=== PATIENT | female | born 1995 | race Hispanic/Latino ===

== ENCOUNTER 2021-04-24 02:13 | Emergency (ER) | payer MEDICAID ==
[~2021-04-24] VITALS: Ht 154.9 cm; Wt 93.0 kg
[2021-04-24] MEDS ORDERED: KETOROLAC TROMETHAMINE 30 MG/ML VIAL IV STA (04:09)
[2021-04-24] MEDS ORDERED: KETOROLAC TROMETHAMINE 30 MG/ML VIAL ONE (04:18)
[2021-04-24 04:24] LABS: BASOPHILS # (AUTO) 0.1 (0.0-0.1); BASOPHILS % 0.7 % (0.0-1.0); EOSINOPHILS # (AUTO) 0.1 (0.0-0.4); EOSINOPHILS % 0.4 % (0.0-6.0); HEMATOCRIT 30.9 % (34.2-44.1); HEMOGLOBIN 9.7 g/dL (12.0-16.0); LYMPHOCYTES # (AUTO) 1.8 (1.0-3.2); LYMPHOCYTES % 15.9 % (18.0-39.1); MEAN CORPUSCULAR HEMOGLOBIN 25.1 pg (28-32); MEAN CORPUSCULAR HGB CONC 31.4 g/dL (31-35); MEAN CORPUSCULAR VOLUME 79.8 fL (81-99); MONOCYTES # (AUTO) 0.6 (0.2-0.8); MONOCYTES % 4.8 % (4.4-11.3); NEUTROPHILS # (AUTO) 8.8 (2.1-6.9); NEUTROPHILS % 77.8 % (38.7-80.0); PLATELET COUNT 397 x10e3/uL (140-360); RED BLOOD COUNT 3.87 x10e6/uL (3.6-5.1); RED CELL DISTRIBUTION WIDTH 13.6 % (11.7-14.4)
[2021-04-24 04:26] LABS: CLARITY,URINE CLEAR (CLEAR); COLOR,URINE YELLOW (YELLOW); KETONES,URINE NEGATIVE (NEGATIVE); LEUKOCYTE ESTERASE ,URINE NEGATIVE (NEGATIVE); NITRITE,URINE NEGATIVE (NEGATIVE); PROTEIN,URINE DIPSTICK NEGATIVE (NEGATIVE); URINE UROBILINOGEN 0.2 mg/dL (0.2 - 1)
[2021-04-24 04:31] LABS: AMORPHOUS SEDIMENT,URINE FEW (FEW); BACTERIA,URINE FEW /HPF; EPITHELIAL CELLS,URINE MODERATE /LPF; MUCUS,URINE FEW (RARE); RBC,URINE 0-5 /HPF (0-5); WBC,URINE (MAN) 0-5 /HPF (0-5)
[2021-04-24] MEDS ORDERED: IOPAMIDOL 370 MG/ML 200 ML INFUS..BTL INJ ONE (04:41)
[2021-04-24] MEDS ORDERED: SODIUM CHLORIDE 0.9% 50ML 50 ML ONE (04:41)
[2021-04-24 04:44] LABS: ALANINE AMINOTRANSFERASE 32 IU/L (0-55); ALBUMIN 4.3 g/dL (3.5-5.0); ALBUMIN/GLOBULIN RATIO 1.1 (0.8-2.0); ALKALINE PHOSPHATASE 74 IU/L (40-150); ANION GAP 14.8 mmol/L (8-16); BLOOD UREA NITROGEN 11 mg/dL (7-26); BUN/CREATININE RATIO 14 (6-25); CALCIUM 9.2 mg/dL (8.4-10.2); CARBON DIOXIDE 23 mmol/L (22-29); CHLORIDE 101 mmol/L (98-107); CREATININE, SERUM 0.81 mg/dL (0.57-1.11); EST GLOMERULAR FILTRATION RATE > 60 ML/MIN (60-); GLUCOSE 103 mg/dL (74-118); POTASSIUM 3.8 mmol/L (3.5-5.1); SODIUM 135 mmol/L (136-145)
[2021-04-24 06:40] VITALS: BP 121/65
== END 2021-04-24 06:45 | disposition home or self-care (01) ==
LOC: ER 04:22
DX: K80.50 Calculus of bile duct without cholangitis or cholecystitis without obstruction (principal)
CPT/HCPCS: 36415; 74177; 80053; 81001; 81025; 83690; 85025; 99284; J1885; Q9967

== ENCOUNTER 2021-04-25 04:26 | Inpatient (IN) | payer MEDICAID ==
[~2021-04-25] VITALS: Ht 154.9 cm; Wt 93.0 kg
[2021-04-25] MEDS ORDERED: ONDANSETRON HCL INJ 2MG/ML 2ML 2 MG/ML VIAL IV STA ×2 (04:37→05:39)
[2021-04-25 04:45] LABS: BASOPHILS % 0.2 % (0.0-1.0); HEMATOCRIT 37.9 % (34.2-44.1); HEMOGLOBIN 12.1 g/dL (12.0-16.0); LYMPHOCYTES # (AUTO) 0.9 (1.0-3.2); LYMPHOCYTES % 5.7 % (18.0-39.1); MEAN CORPUSCULAR HEMOGLOBIN 24.8 pg (28-32); MEAN CORPUSCULAR HGB CONC 31.9 g/dL (31-35); MEAN CORPUSCULAR VOLUME 77.8 fL (81-99); MONOCYTES # (AUTO) 0.7 (0.2-0.8); MONOCYTES % 4.7 % (4.4-11.3); NEUTROPHILS # (AUTO) 13.6 (2.1-6.9); NEUTROPHILS % 88.9 % (38.7-80.0); PLATELET COUNT 525 x10e3/uL (140-360); RED BLOOD COUNT 4.87 x10e6/uL (3.6-5.1); RED CELL DISTRIBUTION WIDTH 13.7 % (11.7-14.4)
[2021-04-25] MEDS ORDERED: DICYCLOMINE HCL 20 MG/2 ML VIAL IM ONE (04:45)
[2021-04-25 05:03] LABS: AMYLASE 1060 U/L (25-125)
[2021-04-25 05:09] LABS: ALANINE AMINOTRANSFERASE 432 IU/L (0-55); ALBUMIN 4.4 g/dL (3.5-5.0); ALKALINE PHOSPHATASE 135 IU/L (40-150); ANION GAP 20.7 mmol/L (8-16); BLOOD UREA NITROGEN 12 mg/dL (7-26); BUN/CREATININE RATIO 12 (6-25); CALCIUM 8.8 mg/dL (8.4-10.2); CARBON DIOXIDE 20 mmol/L (22-29); CHLORIDE 98 mmol/L (98-107); CREATININE, SERUM 1.04 mg/dL (0.57-1.11); EST GLOMERULAR FILTRATION RATE > 60 ML/MIN (60-); GLUCOSE 153 mg/dL (74-118); POTASSIUM 3.7 mmol/L (3.5-5.1); SODIUM 135 mmol/L (136-145)
[2021-04-25 05:17] LABS: CLARITY,URINE SL CLOUDY (CLEAR); COLOR,URINE AMBER (YELLOW); KETONES,URINE NEGATIVE (NEGATIVE); LEUKOCYTE ESTERASE ,URINE NEGATIVE (NEGATIVE); NITRITE,URINE NEGATIVE (NEGATIVE); PROTEIN,URINE DIPSTICK 2+ (NEGATIVE); URINE UROBILINOGEN 0.2 mg/dL (0.2 - 1)
[2021-04-25 05:24] LABS: BACTERIA,URINE FEW /HPF; EPITHELIAL CELLS,URINE MODERATE /LPF; MUCUS,URINE MANY (RARE); WBC,URINE (MAN) 0-5 /HPF (0-5)
[2021-04-25 05:25] LABS: AMORPHOUS SEDIMENT,URINE FEW (FEW)
[2021-04-25] MEDS: PIPERACILLIN/TAZOBACTAM 3.375 GM in SODIUM CHLORIDE 0.9% 50ML 50 ML IV SCH ×4 (05:25→23:58)
[2021-04-25] MEDS ORDERED: SODIUM CHLORIDE 0.9% 50ML 50 ML ONE (05:25)
[2021-04-25] MEDS ORDERED: PIPERACILLIN/TAZOBACTAM 3.375 GM VIAL ONE (05:25)
[2021-04-25 05:35] LABS: LIPASE 3576 U/L (8-78)
[2021-04-25] MEDS ORDERED: MORPHINE SULFATE INJ 4 MG/ML INJ 1ML IV STA (05:39)
[2021-04-25] MEDS ORDERED: SODIUM CHLORIDE 0.9% 500ML 500 ML ONE ×2 (05:44→05:53)
[2021-04-25] MEDS ORDERED: SODIUM CHLORIDE 0.9% 1000ML 2,000 ML ONE (05:44)
[2021-04-25] MEDS ORDERED: SODIUM CHLORIDE 0.9% 1000ML 1,000 ML IV ONE ×3 (05:45)
[2021-04-25] MEDS ORDERED: MORPHINE SULFATE INJ 2 MG/ML SYR ONE (05:53)
[2021-04-25] MEDS ORDERED: ONDANSETRON HCL INJ 2MG/ML 2ML 2 MG/ML VIAL ONE (05:53)
[2021-04-25] MEDS ORDERED: HYDROMORPHONE 1MG/1ML INJ IV ONE (06:45)
[2021-04-25] MEDS: HYDROMORPHONE 1MG/1ML INJ IV PRN ×4 (07:52→23:04)
[2021-04-25] MEDS: ONDANSETRON HCL INJ 2MG/ML 2ML 2 MG/ML VIAL IV PRN (07:52)
[2021-04-25 09:20] VITALS: BP 127/97
[2021-04-25] MEDS: SODIUM CHLORIDE 0.9% 1000ML 1,000 ML IV SCH ×3 (09:40→23:15)
[2021-04-25 10:05] VITALS: BP 127/97
[2021-04-25] MEDS ORDERED: PIPERACILLIN/TAZOBACTAM 3.375 GM in SODIUM CHLORIDE 0.9% 50ML 50 ML IV SCH (12:00)
[2021-04-25 12:34] VITALS: BP 134/99
[2021-04-25 16:35] VITALS: BP 123/86
[2021-04-25 20:00] VITALS: BP 124/99
[2021-04-25 21:00] VITALS: BP 124/99
[2021-04-26] VITALS (8 sets, daily range): BP systolic 100–133; BP diastolic 56–88
[2021-04-26] MEDS: HYDROMORPHONE 1MG/1ML INJ IV PRN ×7 (02:16→22:35)
[2021-04-26] MEDS: LACTATED RINGER'S 1,000 ML INJ SCH ×5 (02:59→23:34)
[2021-04-26 05:48] LABS: BASOPHILS # (AUTO) 0.1 (0.0-0.1); BASOPHILS % 0.5 % (0.0-1.0); EOSINOPHILS % 0.1 % (0.0-6.0); HEMATOCRIT 31.7 % (34.2-44.1); HEMOGLOBIN 9.8 g/dL (12.0-16.0); LYMPHOCYTES # (AUTO) 0.9 (1.0-3.2); LYMPHOCYTES % 8.5 % (18.0-39.1); MEAN CORPUSCULAR HEMOGLOBIN 24.7 pg (28-32); MEAN CORPUSCULAR HGB CONC 30.9 g/dL (31-35); MEAN CORPUSCULAR VOLUME 79.8 fL (81-99); MONOCYTES # (AUTO) 0.5 (0.2-0.8); MONOCYTES % 5.1 % (4.4-11.3); NEUTROPHILS # (AUTO) 8.9 (2.1-6.9); NEUTROPHILS % 85.4 % (38.7-80.0); PLATELET COUNT 405 x10e3/uL (140-360); RED BLOOD COUNT 3.97 x10e6/uL (3.6-5.1); RED CELL DISTRIBUTION WIDTH 14.1 % (11.7-14.4)
[2021-04-26] MEDS: PIPERACILLIN/TAZOBACTAM 3.375 GM in SODIUM CHLORIDE 0.9% 50ML 50 ML IV SCH ×4 (06:04→23:34)
[2021-04-26 06:13] LABS: ALANINE AMINOTRANSFERASE 199 IU/L (0-55); ALBUMIN/GLOBULIN RATIO 0.9 (0.8-2.0); ALKALINE PHOSPHATASE 90 IU/L (40-150); AMYLASE 722 U/L (25-125); ANION GAP 10.4 mmol/L (8-16); BLOOD UREA NITROGEN 5 mg/dL (7-26); BUN/CREATININE RATIO 7 (6-25); CARBON DIOXIDE 24 mmol/L (22-29); CHLORIDE 105 mmol/L (98-107); CREATININE, SERUM 0.68 mg/dL (0.57-1.11); EST GLOMERULAR FILTRATION RATE > 60 ML/MIN (60-); GLUCOSE 110 mg/dL (74-118); POTASSIUM 3.4 mmol/L (3.5-5.1); SODIUM 136 mmol/L (136-145)
[2021-04-26 06:21] LABS: CALCIUM 6.4 mg/dL (8.4-10.2)
[2021-04-26] MEDS ORDERED: CALCIUM GLUCONATE 10% INJ 9.3 MEQ in SODIUM CHLORIDE 0.9% 100 ML 100 ML IV ONE ×2 (06:45→10:30)
[2021-04-26 06:50] LABS: % IRON SATURATION 3 % (15-50); IRON 9 ug/dL (50-170); TOTAL IRON BINDING CAPACITY 335 ug/dL (261-478); TRANSFERRIN 239 mg/dL (180-382)
[2021-04-26 07:03] LABS: LIPASE 1833 U/L (8-78)
[2021-04-26 07:11] LABS: FREE THYROXINE INDEX 0.2421483 (1.4-3.8); THYROID STIMULATING HORMONE 17.067 uIU/mL (0.350-4.940)
[2021-04-26] MEDS ORDERED: POTASSIUM CHLORIDE 20 MEQ TAB CR PO NR (10:15)
[2021-04-26] MEDS: IRON SUCROSE 100 MG in SODIUM CHLORIDE 0.9% 100 ML 100 ML IV SCH (13:31)
[2021-04-27] VITALS (8 sets, daily range): BP systolic 104–129; BP diastolic 53–81
[2021-04-27] MEDS: HYDROMORPHONE 1MG/1ML INJ IV PRN ×8 (01:33→23:09)
[2021-04-27] MEDS: LACTATED RINGER'S 1,000 ML INJ SCH ×5 (03:19→20:19)
[2021-04-27 05:05] LABS: BASOPHILS % 0.4 % (0.0-1.0); EOSINOPHILS # (AUTO) 0.1 (0.0-0.4); EOSINOPHILS % 0.9 % (0.0-6.0); HEMATOCRIT 26.9 % (34.2-44.1); HEMOGLOBIN 8.3 g/dL (12.0-16.0); LYMPHOCYTES % 9.5 % (18.0-39.1); MEAN CORPUSCULAR HEMOGLOBIN 24.7 pg (28-32); MEAN CORPUSCULAR HGB CONC 30.9 g/dL (31-35); MEAN CORPUSCULAR VOLUME 80.1 fL (81-99); MONOCYTES # (AUTO) 0.6 (0.2-0.8); MONOCYTES % 5.6 % (4.4-11.3); NEUTROPHILS % 82.8 % (38.7-80.0); PLATELET COUNT 344 x10e3/uL (140-360); RED BLOOD COUNT 3.36 x10e6/uL (3.6-5.1); RED CELL DISTRIBUTION WIDTH 14.3 % (11.7-14.4)
[2021-04-27 05:58] LABS: ALANINE AMINOTRANSFERASE 129 IU/L (0-55); ALBUMIN 2.7 g/dL (3.5-5.0); ALBUMIN/GLOBULIN RATIO 0.8 (0.8-2.0); ALKALINE PHOSPHATASE 95 IU/L (40-150); AMYLASE 464 U/L (25-125); ANION GAP 13.7 mmol/L (8-16); CARBON DIOXIDE 24 mmol/L (22-29); CHLORIDE 99 mmol/L (98-107); CREATININE, SERUM 0.62 mg/dL (0.57-1.11); EST GLOMERULAR FILTRATION RATE > 60 ML/MIN (60-); GLUCOSE 98 mg/dL (74-118); LIPASE 735 U/L (8-78); POTASSIUM 3.7 mmol/L (3.5-5.1); SODIUM 133 mmol/L (136-145)
[2021-04-27 05:59] LABS: BUN/CREATININE RATIO 8 (6-25)
[2021-04-27 06:00] LABS: CALCIUM 6.7 mg/dL (8.4-10.2)
[2021-04-27 06:12] LABS: BLOOD UREA NITROGEN < 5 mg/dL (7-26)
[2021-04-27] MEDS: PIPERACILLIN/TAZOBACTAM 3.375 GM in SODIUM CHLORIDE 0.9% 50ML 50 ML IV SCH ×4 (06:20→23:08)
[2021-04-27 06:25] LABS: LYMPHOCYTES % (MANUAL) 11 % (19-48); MONOCYTES % (MANUAL) 4 % (3.4-9.0); NEUTROPHILS % (MANUAL) 85 % (40-74); PLATELET ESTIMATE ADEQUATE; PLATELET MORPHOLOGY COMMENT NORMAL; RBC MORPHOLOGY COMMENT NORMAL
[2021-04-27] MEDS ORDERED: CALCIUM GLUCONATE 10% INJ 9.3 MEQ in SODIUM CHLORIDE 0.9% 250ML 250 ML IV SCH (06:45)
[2021-04-27 07:56] LABS: MAGNESIUM 1.7 MG/DL (1.3-2.1); PHOSPHORUS 0.8 MG/DL (2.3-4.7)
[2021-04-27] MEDS ORDERED: SODIUM PHOSPHATE IN 0.9 % NACL 30 MMOL in SODIUM CHLORIDE 0.9% 250ML 250 ML IV ONE ×2 (09:45)
[2021-04-27] MEDS ORDERED: MAGNESIUM SULF 1GRAM/DEXTROSE 100 ML IV ONE (09:45)
[2021-04-27] MEDS: IRON SUCROSE 100 MG in SODIUM CHLORIDE 0.9% 100 ML 100 ML IV SCH (10:45)
[2021-04-27] MEDS: CALCIUM GLUCONATE 10% INJ 9.3 MEQ in SODIUM CHLORIDE 0.9% 250ML 250 ML IV SCH ×3 (14:30→21:26)
[2021-04-27] MEDS ORDERED: CALCITRIOL 0.5 MCG CAP PO SCH (17:30)
[2021-04-27] MEDS: CALCITRIOL 0.25 MCG CAP PO SCH (17:47)
[2021-04-27] MEDS: LEVOTHYROXINE SODIUM 75 MCG TAB PO SCH (17:47)
[2021-04-27 19:02] LABS: FREE T4 (FREE THYROXINE) < 0.40 ng/dL (0.8-1.8); THYROID STIMULATING HORMONE 17.007 uIU/mL (0.350-4.940)
[2021-04-27] MEDS ORDERED: FUROSEMIDE INJ 10 MG/ML 4 ML VIAL IV ONE (22:00)
[2021-04-28] VITALS (8 sets, daily range): BP systolic 107–123; BP diastolic 58–86
[2021-04-28] MEDS: CALCIUM GLUCONATE 10% INJ 9.3 MEQ in SODIUM CHLORIDE 0.9% 250ML 250 ML IV SCH ×6 (02:05→18:10)
[2021-04-28] MEDS: HYDROMORPHONE 1MG/1ML INJ IV PRN ×7 (02:07→23:15)
[2021-04-28] MEDS ORDERED: FUROSEMIDE INJ 10 MG/ML 4 ML VIAL IV ONE (04:00)
[2021-04-28 05:59] LABS: ALBUMIN 2.6 g/dL (3.5-5.0); BILIRUBIN,DIRECT 0.4 mg/dL (0.0-0.5)
[2021-04-28] MEDS: PIPERACILLIN/TAZOBACTAM 3.375 GM in SODIUM CHLORIDE 0.9% 50ML 50 ML IV SCH ×4 (06:00→23:28)
[2021-04-28] MEDS: LEVOTHYROXINE SODIUM 75 MCG TAB PO SCH (06:00)
[2021-04-28] MEDS ORDERED: ACETAMINOPHEN 325 MG TAB PO PRN (06:30)
[2021-04-28] MEDS: CALCITRIOL 0.25 MCG CAP PO SCH (08:01)
[2021-04-28] MEDS: IRON SUCROSE 100 MG in SODIUM CHLORIDE 0.9% 100 ML 100 ML IV SCH (11:01)
[2021-04-28] MEDS: LACTATED RINGER'S 1,000 ML INJ SCH ×2 (11:01→20:48)
[2021-04-28] MEDS ORDERED: SODIUM CHLORIDE 0.9% 50ML 50 ML ONE (13:32)
[2021-04-28] MEDS ORDERED: GADOBENATE DIMEGLUMINE 1 ML IV ONE (13:32)
[2021-04-28] MEDS ORDERED: SODIUM CHLORIDE 0.9% 250ML 250 ML ONE (16:41)
[2021-04-29] VITALS (8 sets, daily range): BP systolic 116–128; BP diastolic 69–77
[2021-04-29] MEDS: CALCIUM GLUCONATE 10% INJ 9.3 MEQ in SODIUM CHLORIDE 0.9% 250ML 250 ML IV SCH ×4 (00:20→18:10)
[2021-04-29] MEDS: HYDROMORPHONE 1MG/1ML INJ IV PRN ×7 (02:30→22:40)
[2021-04-29 05:10] LABS: BASOPHILS # (AUTO) 0.1 (0.0-0.1); BASOPHILS % 0.7 % (0.0-1.0); EOSINOPHILS # (AUTO) 0.1 (0.0-0.4); HEMATOCRIT 23.9 % (34.2-44.1); HEMOGLOBIN 7.6 g/dL (12.0-16.0); LYMPHOCYTES % 9.8 % (18.0-39.1); MEAN CORPUSCULAR HEMOGLOBIN 25.2 pg (28-32); MEAN CORPUSCULAR HGB CONC 31.8 g/dL (31-35); MEAN CORPUSCULAR VOLUME 79.1 fL (81-99); MONOCYTES # (AUTO) 0.9 (0.2-0.8); MONOCYTES % 8.5 % (4.4-11.3); NEUTROPHILS # (AUTO) 7.9 (2.1-6.9); NEUTROPHILS % 78.4 % (38.7-80.0); PLATELET COUNT 355 x10e3/uL (140-360); RED BLOOD COUNT 3.02 x10e6/uL (3.6-5.1); RED CELL DISTRIBUTION WIDTH 14.6 % (11.7-14.4)
[2021-04-29] MEDS: PIPERACILLIN/TAZOBACTAM 3.375 GM in SODIUM CHLORIDE 0.9% 50ML 50 ML IV SCH ×3 (05:27→18:10)
[2021-04-29] MEDS: LEVOTHYROXINE SODIUM 75 MCG TAB PO SCH (05:27)
[2021-04-29 06:05] LABS: ALANINE AMINOTRANSFERASE 67 IU/L (0-55); ALBUMIN 2.4 g/dL (3.5-5.0); ALBUMIN/GLOBULIN RATIO 0.7 (0.8-2.0); ALKALINE PHOSPHATASE 106 IU/L (40-150); ANION GAP 14.9 mmol/L (8-16); BUN/CREATININE RATIO 9 (6-25); CALCIUM 7.8 mg/dL (8.4-10.2); CARBON DIOXIDE 26 mmol/L (22-29); CHLORIDE 99 mmol/L (98-107); CREATININE, SERUM 0.57 mg/dL (0.57-1.11); EST GLOMERULAR FILTRATION RATE > 60 ML/MIN (60-); GLUCOSE 77 mg/dL (74-118); MAGNESIUM 1.9 MG/DL (1.3-2.1); PHOSPHORUS 1.1 MG/DL (2.3-4.7); SODIUM 137 mmol/L (136-145)
[2021-04-29 06:08] LABS: POTASSIUM 2.9 mmol/L (3.5-5.1)
[2021-04-29 06:18] LABS: BLOOD UREA NITROGEN < 5 mg/dL (7-26)
[2021-04-29] MEDS ORDERED: POTASSIUM CHLORIDE 20MEQ/100ML 100 ML IV ONE ×2 (06:45→11:30)
[2021-04-29] MEDS: CALCITRIOL 0.25 MCG CAP PO SCH (09:15)
[2021-04-29] MEDS: IRON SUCROSE 100 MG in SODIUM CHLORIDE 0.9% 100 ML 100 ML IV SCH (10:48)
[2021-04-29] MEDS ORDERED: POTASSIUM PHOSPHATE 30 MM in SODIUM CHLORIDE 0.9% 250ML 250 ML IV ONE (14:00)
[2021-04-29] MEDS: LACTATED RINGER'S 1,000 ML INJ SCH (21:45)
[2021-04-30] VITALS (7 sets, daily range): BP systolic 104–143; BP diastolic 51–81
[2021-04-30] MEDS: PIPERACILLIN/TAZOBACTAM 3.375 GM in SODIUM CHLORIDE 0.9% 50ML 50 ML IV SCH ×5 (00:10→23:53)
[2021-04-30] MEDS: CALCIUM GLUCONATE 10% INJ 9.3 MEQ in SODIUM CHLORIDE 0.9% 250ML 250 ML IV SCH ×5 (00:10→23:44)
[2021-04-30] MEDS: LACTATED RINGER'S 1,000 ML INJ SCH ×2 (01:13→18:47)
[2021-04-30] MEDS: HYDROMORPHONE 1MG/1ML INJ IV PRN ×7 (03:00→23:41)
[2021-04-30] MEDS ORDERED: BISACODYL 10 MG SUPP PR ONE (03:00)
[2021-04-30] MEDS: LEVOTHYROXINE SODIUM 75 MCG TAB PO SCH (06:13)
[2021-04-30 06:46] LABS: BASOPHILS % 0.3 % (0.0-1.0); EOSINOPHILS # (AUTO) 0.1 (0.0-0.4); EOSINOPHILS % 0.9 % (0.0-6.0); HEMATOCRIT 22.3 % (34.2-44.1); HEMOGLOBIN 7.2 g/dL (12.0-16.0); LYMPHOCYTES # (AUTO) 1.2 (1.0-3.2); LYMPHOCYTES % 11.5 % (18.0-39.1); MEAN CORPUSCULAR HEMOGLOBIN 25.1 pg (28-32); MEAN CORPUSCULAR HGB CONC 32.3 g/dL (31-35); MEAN CORPUSCULAR VOLUME 77.7 fL (81-99); MONOCYTES % 9.1 % (4.4-11.3); NEUTROPHILS % 75.8 % (38.7-80.0); PLATELET COUNT 429 x10e3/uL (140-360); RED BLOOD COUNT 2.87 x10e6/uL (3.6-5.1); RETICULOCYTE % 2.8 % (0.8-2.2)
[2021-04-30 07:25] LABS: ANION GAP 12.8 mmol/L (8-16); BLOOD UREA NITROGEN < 5 mg/dL (7-26); CALCIUM 7.9 mg/dL (8.4-10.2); CARBON DIOXIDE 25 mmol/L (22-29); CHLORIDE 101 mmol/L (98-107); CREATININE, SERUM 0.53 mg/dL (0.57-1.11); EST GLOMERULAR FILTRATION RATE > 60 ML/MIN (60-); GLUCOSE 83 mg/dL (74-118); SODIUM 136 mmol/L (136-145)
[2021-04-30 07:28] LABS: BUN/CREATININE RATIO 9 (6-25)
[2021-04-30 07:29] LABS: POTASSIUM 2.8 mmol/L (3.5-5.1)
[2021-04-30 07:52] LABS: AMYLASE 52 U/L (25-125); LIPASE 43 U/L (8-78)
[2021-04-30] MEDS ORDERED: POTASSIUM CHLORIDE 20MEQ/100ML 200 ML IV ONE (08:45)
[2021-04-30 08:47] LABS: BAND NEUTROPHILS % (MANUAL) 3 %; EOSINOPHILS % (MANUAL) 1 % (0-7); LYMPHOCYTES % (MANUAL) 11 % (19-48); MONOCYTES % (MANUAL) 8 % (3.4-9.0); NEUTROPHILS % (MANUAL) 77 % (40-74); NUCLEATED RED BLOOD CELLS 1
[2021-04-30 08:49] LABS: PLATELET ESTIMATE SLIGHTLY INCREASED; PLATELET MORPHOLOGY COMMENT NORMAL; RBC MORPHOLOGY COMMENT NORMAL
[2021-04-30] MEDS: CALCITRIOL 0.25 MCG CAP PO SCH (09:44)
[2021-04-30] MEDS ORDERED: POTASSIUM PHOSPHATE 30 MM in SODIUM CHLORIDE 0.9% 250ML 250 ML IV ONE (12:00)
[2021-04-30] MEDS: IRON SUCROSE 100 MG in SODIUM CHLORIDE 0.9% 100 ML 100 ML IV SCH (13:13)
[2021-05-01] VITALS (7 sets, daily range): BP systolic 106–132; BP diastolic 63–85
[2021-05-01] MEDS: CALCIUM GLUCONATE 10% INJ 9.3 MEQ in SODIUM CHLORIDE 0.9% 250ML 250 ML IV SCH ×4 (02:39→18:09)
[2021-05-01] MEDS: HYDROMORPHONE 1MG/1ML INJ IV PRN ×6 (02:44→21:20)
[2021-05-01 04:55] LABS: BASOPHILS # (AUTO) 0.1 (0.0-0.1); BASOPHILS % 0.6 % (0.0-1.0); EOSINOPHILS # (AUTO) 0.1 (0.0-0.4); EOSINOPHILS % 0.9 % (0.0-6.0); HEMATOCRIT 21.8 % (34.2-44.1); HEMOGLOBIN 7.2 g/dL (12.0-16.0); LYMPHOCYTES # (AUTO) 1.3 (1.0-3.2); LYMPHOCYTES % 10.9 % (18.0-39.1); MEAN CORPUSCULAR HEMOGLOBIN 25.3 pg (28-32); MEAN CORPUSCULAR VOLUME 76.5 fL (81-99); MONOCYTES # (AUTO) 0.9 (0.2-0.8); MONOCYTES % 7.4 % (4.4-11.3); NEUTROPHILS # (AUTO) 8.8 (2.1-6.9); NEUTROPHILS % 75.6 % (38.7-80.0); PLATELET COUNT 446 x10e3/uL (140-360); RED BLOOD COUNT 2.85 x10e6/uL (3.6-5.1); RED CELL DISTRIBUTION WIDTH 15.6 % (11.7-14.4)
[2021-05-01 05:12] LABS: ANION GAP 16.1 mmol/L (8-16); CALCIUM 7.7 mg/dL (8.4-10.2); CARBON DIOXIDE 25 mmol/L (22-29); CHLORIDE 100 mmol/L (98-107); CREATININE, SERUM 0.51 mg/dL (0.57-1.11); EST GLOMERULAR FILTRATION RATE > 60 ML/MIN (60-); GLUCOSE 97 mg/dL (74-118); POTASSIUM 3.1 mmol/L (3.5-5.1); SODIUM 138 mmol/L (136-145)
[2021-05-01 05:56] LABS: BLOOD UREA NITROGEN < 5 mg/dL (7-26); BUN/CREATININE RATIO 10 (6-25)
[2021-05-01 06:18] LABS: ANISOCYTOSIS SLIGHT; BAND NEUTROPHILS % (MANUAL) 5 %; EOSINOPHILS % (MANUAL) 2 % (0-7); LYMPHOCYTES % (MANUAL) 9 % (19-48); MONOCYTES % (MANUAL) 6 % (3.4-9.0); NEUTROPHILS % (MANUAL) 78 % (40-74); PLATELET ESTIMATE SLIGHTLY INCREASED; PLATELET MORPHOLOGY COMMENT NORMAL
[2021-05-01 06:19] LABS: POIKILOCYTOSIS SLIGHT
[2021-05-01 06:20] LABS: RBC MORPHOLOGY COMMENT ABNORMAL
[2021-05-01] MEDS: LACTATED RINGER'S 1,000 ML INJ SCH ×2 (06:38→17:13)
[2021-05-01] MEDS: LEVOTHYROXINE SODIUM 75 MCG TAB PO SCH (06:38)
[2021-05-01] MEDS: PIPERACILLIN/TAZOBACTAM 3.375 GM in SODIUM CHLORIDE 0.9% 50ML 50 ML IV SCH ×3 (06:38→18:09)
[2021-05-01] MEDS: CALCITRIOL 0.25 MCG CAP PO SCH ×2 (09:00→14:25)
[2021-05-01] MEDS: IRON SUCROSE 100 MG in SODIUM CHLORIDE 0.9% 100 ML 100 ML IV SCH (10:28)
[2021-05-01] MEDS ORDERED: POTASSIUM CHLORIDE 20MEQ/100ML 100 ML IV ONE (19:30)
[2021-05-01] MEDS: ONDANSETRON HCL INJ 2MG/ML 2ML 2 MG/ML VIAL IV PRN (21:22)
[2021-05-02] VITALS (9 sets, daily range): BP systolic 112–126; BP diastolic 62–83
[2021-05-02] MEDS: HYDROMORPHONE 1MG/1ML INJ IV PRN ×8 (00:22→23:27)
[2021-05-02] MEDS: LACTATED RINGER'S 1,000 ML INJ SCH ×2 (05:31→20:49)
[2021-05-02] MEDS: CALCIUM GLUCONATE 10% INJ 9.3 MEQ in SODIUM CHLORIDE 0.9% 250ML 250 ML IV SCH ×5 (05:31→18:00)
[2021-05-02] MEDS: LEVOTHYROXINE SODIUM 75 MCG TAB PO SCH (05:31)
[2021-05-02] MEDS: PIPERACILLIN/TAZOBACTAM 3.375 GM in SODIUM CHLORIDE 0.9% 50ML 50 ML IV SCH ×5 (05:31→18:33)
[2021-05-02 07:19] LABS: BASOPHILS % 0.3 % (0.0-1.0); EOSINOPHILS # (AUTO) 0.1 (0.0-0.4); EOSINOPHILS % 0.9 % (0.0-6.0); LYMPHOCYTES # (AUTO) 1.2 (1.0-3.2); LYMPHOCYTES % 9.4 % (18.0-39.1); MEAN CORPUSCULAR HEMOGLOBIN 24.6 pg (28-32); MEAN CORPUSCULAR HGB CONC 31.7 g/dL (31-35); MEAN CORPUSCULAR VOLUME 77.5 fL (81-99); MONOCYTES # (AUTO) 0.7 (0.2-0.8); MONOCYTES % 5.8 % (4.4-11.3); NEUTROPHILS # (AUTO) 9.9 (2.1-6.9); NEUTROPHILS % 78.8 % (38.7-80.0); PLATELET COUNT 450 x10e3/uL (140-360); RED CELL DISTRIBUTION WIDTH 15.9 % (11.7-14.4)
[2021-05-02 07:30] LABS: HEMATOCRIT 22.1 % (34.2-44.1); RED BLOOD COUNT 2.85 x10e6/uL (3.6-5.1)
[2021-05-02 08:01] LABS: ANION GAP 14.9 mmol/L (8-16); CALCIUM 7.9 mg/dL (8.4-10.2); CARBON DIOXIDE 30 mmol/L (22-29); CHLORIDE 97 mmol/L (98-107); CREATININE, SERUM 0.56 mg/dL (0.57-1.11); EST GLOMERULAR FILTRATION RATE > 60 ML/MIN (60-); GLUCOSE 95 mg/dL (74-118); SODIUM 139 mmol/L (136-145)
[2021-05-02 08:08] LABS: BUN/CREATININE RATIO 4 (6-25)
[2021-05-02 08:11] LABS: BLOOD UREA NITROGEN < 2 mg/dL (7-26); POTASSIUM 2.9 mmol/L (3.5-5.1)
[2021-05-02 08:15] LABS: HEMATOCRIT 22.2 % (34.2-44.1); HEMOGLOBIN 7.2 g/dL (12.0-16.0)
[2021-05-02] MEDS: CALCITRIOL 0.25 MCG CAP PO SCH (08:59)
[2021-05-02] MEDS: POTASSIUM CHLORIDE 20MEQ/100ML 100 ML IV SCH ×3 (08:59→12:37)
[2021-05-02] MEDS: IRON SUCROSE 100 MG in SODIUM CHLORIDE 0.9% 100 ML 100 ML IV SCH (12:35)
[2021-05-02] MEDS: OYST-CAL-D 500MG TABLET PO SCH ×2 (16:49→20:45)
[2021-05-03] VITALS (8 sets, daily range): BP systolic 102–112; BP diastolic 63–75
[2021-05-03] MEDS: PIPERACILLIN/TAZOBACTAM 3.375 GM in SODIUM CHLORIDE 0.9% 50ML 50 ML IV SCH ×5 (00:22→23:28)
[2021-05-03] MEDS: CALCIUM GLUCONATE 10% INJ 9.3 MEQ in SODIUM CHLORIDE 0.9% 250ML 250 ML IV SCH ×4 (02:19→16:15)
[2021-05-03] MEDS: HYDROMORPHONE 1MG/1ML INJ IV PRN ×6 (03:03→22:46)
[2021-05-03] MEDS: LEVOTHYROXINE SODIUM 75 MCG TAB PO SCH (05:31)
[2021-05-03 06:24] LABS: BASOPHILS % 0.4 % (0.0-1.0); EOSINOPHILS # (AUTO) 0.1 (0.0-0.4); EOSINOPHILS % 0.8 % (0.0-6.0); LYMPHOCYTES # (AUTO) 1.3 (1.0-3.2); LYMPHOCYTES % 11.8 % (18.0-39.1); MEAN CORPUSCULAR HEMOGLOBIN 24.9 pg (28-32); MEAN CORPUSCULAR HGB CONC 31.9 g/dL (31-35); MONOCYTES # (AUTO) 0.7 (0.2-0.8); MONOCYTES % 6.3 % (4.4-11.3); NEUTROPHILS # (AUTO) 8.1 (2.1-6.9); NEUTROPHILS % 75.7 % (38.7-80.0); PLATELET COUNT 421 x10e3/uL (140-360); RED BLOOD COUNT 2.73 x10e6/uL (3.6-5.1); RED CELL DISTRIBUTION WIDTH 16.4 % (11.7-14.4)
[2021-05-03 06:44] LABS: HEMATOCRIT 21.3 % (34.2-44.1); HEMOGLOBIN 6.8 g/dL (12.0-16.0)
[2021-05-03] MEDS ORDERED: SODIUM CHLORIDE 0.9% 250ML 250 ML IV ONE (07:15)
[2021-05-03 07:16] LABS: ANION GAP 14.3 mmol/L (8-16); BLOOD UREA NITROGEN < 5 mg/dL (7-26); CARBON DIOXIDE 31 mmol/L (22-29); CHLORIDE 99 mmol/L (98-107); CREATININE, SERUM 0.65 mg/dL (0.57-1.11); EST GLOMERULAR FILTRATION RATE > 60 ML/MIN (60-); GLUCOSE 94 mg/dL (74-118); MAGNESIUM 1.8 MG/DL (1.3-2.1); POTASSIUM 3.3 mmol/L (3.5-5.1); SODIUM 141 mmol/L (136-145)
[2021-05-03 07:24] LABS: BUN/CREATININE RATIO 8 (6-25)
[2021-05-03 07:38] LABS: AMYLASE 59 U/L (25-125); LIPASE 153 U/L (8-78)
[2021-05-03] MEDS: OYST-CAL-D 500MG TABLET PO SCH ×4 (09:27→21:10)
[2021-05-03] MEDS: CALCITRIOL 0.25 MCG CAP PO SCH (09:27)
[2021-05-03] MEDS: LACTATED RINGER'S 1,000 ML INJ SCH ×2 (09:35→22:47)
[2021-05-03] MEDS: ONDANSETRON HCL INJ 2MG/ML 2ML 2 MG/ML VIAL IV PRN ×2 (09:35→22:46)
[2021-05-03] MEDS: IRON SUCROSE 100 MG in SODIUM CHLORIDE 0.9% 100 ML 100 ML IV SCH (10:45)
[2021-05-03] MEDS ORDERED: SODIUM CHLORIDE 0.9% 250ML 250 ML ONE (13:15)
[2021-05-03] MEDS ORDERED: POTASSIUM CHLORIDE 20 MEQ TAB CR PO ONE (13:30)
[2021-05-03] MEDS ORDERED: SODIUM CHLORIDE 0.9% 50ML 100 ML ONE (15:41)
[2021-05-03] MEDS ORDERED: PIPERACILLIN/TAZOBACTAM 3.375 GM VIAL ONE (15:42)
[2021-05-04] VITALS (8 sets, daily range): BP systolic 95–125; BP diastolic 61–76
[2021-05-04] MEDS: CALCIUM GLUCONATE 10% INJ 9.3 MEQ in SODIUM CHLORIDE 0.9% 250ML 250 ML IV SCH ×3 (01:23→22:47)
[2021-05-04] MEDS: HYDROMORPHONE 1MG/1ML INJ IV PRN ×4 (04:16→23:10)
[2021-05-04] MEDS: ONDANSETRON HCL INJ 2MG/ML 2ML 2 MG/ML VIAL IV PRN (04:16)
[2021-05-04] MEDS: PIPERACILLIN/TAZOBACTAM 3.375 GM in SODIUM CHLORIDE 0.9% 50ML 50 ML IV SCH ×3 (05:37→18:00)
[2021-05-04] MEDS: LEVOTHYROXINE SODIUM 75 MCG TAB PO SCH (05:37)
[2021-05-04 08:12] LABS: BASOPHILS % 0.4 % (0.0-1.0); EOSINOPHILS # (AUTO) 0.1 (0.0-0.4); EOSINOPHILS % 0.9 % (0.0-6.0); HEMATOCRIT 26.4 % (34.2-44.1); HEMOGLOBIN 8.4 g/dL (12.0-16.0); LYMPHOCYTES # (AUTO) 1.2 (1.0-3.2); LYMPHOCYTES % 12.9 % (18.0-39.1); MEAN CORPUSCULAR HEMOGLOBIN 25.4 pg (28-32); MEAN CORPUSCULAR HGB CONC 31.8 g/dL (31-35); MEAN CORPUSCULAR VOLUME 79.8 fL (81-99); MONOCYTES # (AUTO) 0.6 (0.2-0.8); MONOCYTES % 6.7 % (4.4-11.3); NEUTROPHILS # (AUTO) 6.5 (2.1-6.9); NEUTROPHILS % 72.4 % (38.7-80.0); PLATELET COUNT 364 x10e3/uL (140-360); RED BLOOD COUNT 3.31 x10e6/uL (3.6-5.1); RED CELL DISTRIBUTION WIDTH 17.7 % (11.7-14.4)
[2021-05-04] MEDS ORDERED: ALTEPLASE RECOMBINANT 2 MG/2 ML VIAL IV ONE (09:00)
[2021-05-04] MEDS: OYST-CAL-D 500MG TABLET PO SCH ×4 (09:00→20:07)
[2021-05-04 09:09] LABS: AMYLASE 68 U/L (25-125); ANION GAP 13.6 mmol/L (8-16); BLOOD UREA NITROGEN < 5 mg/dL (7-26); CALCIUM 8.1 mg/dL (8.4-10.2); CARBON DIOXIDE 29 mmol/L (22-29); CHLORIDE 101 mmol/L (98-107); CREATININE, SERUM 0.65 mg/dL (0.57-1.11); EST GLOMERULAR FILTRATION RATE > 60 ML/MIN (60-); GLUCOSE 86 mg/dL (74-118); LIPASE 180 U/L (8-78); MAGNESIUM 1.8 MG/DL (1.3-2.1); PHOSPHORUS 2.6 MG/DL (2.3-4.7); POTASSIUM 3.6 mmol/L (3.5-5.1); SODIUM 140 mmol/L (136-145)
[2021-05-04] MEDS ORDERED: SODIUM CHLORIDE 0.9% 50ML 50 ML ONE (09:09)
[2021-05-04] MEDS ORDERED: IOPAMIDOL 370 MG/ML 200 ML INFUS..BTL INJ ONE (09:09)
[2021-05-04 09:27] LABS: BUN/CREATININE RATIO 8 (6-25)
[2021-05-04] MEDS: CALCITRIOL 0.25 MCG CAP PO SCH (10:23)
[2021-05-04] MEDS: IRON SUCROSE 100 MG in SODIUM CHLORIDE 0.9% 100 ML 100 ML IV SCH (10:45)
[2021-05-04] MEDS: LACTATED RINGER'S 1,000 ML INJ SCH (11:30)
[2021-05-05] VITALS (8 sets, daily range): BP systolic 103–123; BP diastolic 66–79
[2021-05-05] MEDS: LACTATED RINGER'S 1,000 ML INJ SCH ×2 (03:00→20:17)
[2021-05-05] MEDS: HYDROMORPHONE 1MG/1ML INJ IV PRN ×5 (04:18→21:08)
[2021-05-05 05:31] LABS: BASOPHILS # (AUTO) 0.1 (0.0-0.1); BASOPHILS % 0.5 % (0.0-1.0); EOSINOPHILS # (AUTO) 0.1 (0.0-0.4); EOSINOPHILS % 0.9 % (0.0-6.0); HEMATOCRIT 26.3 % (34.2-44.1); HEMOGLOBIN 8.4 g/dL (12.0-16.0); LYMPHOCYTES # (AUTO) 1.1 (1.0-3.2); LYMPHOCYTES % 11.2 % (18.0-39.1); MEAN CORPUSCULAR HEMOGLOBIN 25.5 pg (28-32); MEAN CORPUSCULAR HGB CONC 31.9 g/dL (31-35); MEAN CORPUSCULAR VOLUME 79.9 fL (81-99); MONOCYTES # (AUTO) 0.7 (0.2-0.8); MONOCYTES % 6.9 % (4.4-11.3); NEUTROPHILS # (AUTO) 7.2 (2.1-6.9); PLATELET COUNT 393 x10e3/uL (140-360); RED BLOOD COUNT 3.29 x10e6/uL (3.6-5.1); RED CELL DISTRIBUTION WIDTH 18.4 % (11.7-14.4)
[2021-05-05] MEDS: LEVOTHYROXINE SODIUM 75 MCG TAB PO SCH (06:00)
[2021-05-05 06:07] LABS: ALANINE AMINOTRANSFERASE 26 IU/L (0-55); ALBUMIN 2.5 g/dL (3.5-5.0); ALBUMIN/GLOBULIN RATIO 0.6 (0.8-2.0); ALKALINE PHOSPHATASE 115 IU/L (40-150); AMYLASE 76 U/L (25-125); ANION GAP 13.3 mmol/L (8-16); BLOOD UREA NITROGEN < 5 mg/dL (7-26); CALCIUM 8.4 mg/dL (8.4-10.2); CARBON DIOXIDE 28 mmol/L (22-29); CHLORIDE 103 mmol/L (98-107); EST GLOMERULAR FILTRATION RATE > 60 ML/MIN (60-); GLUCOSE 120 mg/dL (74-118); LIPASE 200 U/L (8-78); POTASSIUM 3.3 mmol/L (3.5-5.1); SODIUM 141 mmol/L (136-145)
[2021-05-05 06:08] LABS: BUN/CREATININE RATIO 7 (6-25)
[2021-05-05] MEDS: OYST-CAL-D 500MG TABLET PO SCH ×2 (09:18→12:46)
[2021-05-05] MEDS: CALCITRIOL 0.25 MCG CAP PO SCH (09:19)
[2021-05-05] MEDS: IRON SUCROSE 100 MG in SODIUM CHLORIDE 0.9% 100 ML 100 ML IV SCH (10:45)
[2021-05-05] MEDS: CALCIUM GLUCONATE 10% INJ 9.3 MEQ in SODIUM CHLORIDE 0.9% 250ML 250 ML IV SCH (12:00)
[2021-05-05] MEDS ORDERED: POTASSIUM CHLORIDE 10MEQ/100ML 100 ML IV ONE (16:15)
[2021-05-05] MEDS: PIPERACILLIN/TAZOBACTAM 3.375 GM in SODIUM CHLORIDE 0.9% 50ML 50 ML IV SCH ×3 (17:26)
[2021-05-05] MEDS: CALCIUM CARBONATE 500 MG CHEWABLE TABS PO SCH ×2 (17:26→20:52)
[2021-05-06] VITALS (9 sets, daily range): BP systolic 99–115; BP diastolic 42–76
[2021-05-06] MEDS: HYDROMORPHONE 1MG/1ML INJ IV PRN ×5 (01:35→22:19)
[2021-05-06] MEDS: PIPERACILLIN/TAZOBACTAM 3.375 GM in SODIUM CHLORIDE 0.9% 50ML 50 ML IV SCH ×3 (02:39→18:18)
[2021-05-06] MEDS: LACTATED RINGER'S 1,000 ML INJ SCH ×2 (03:53→14:23)
[2021-05-06 04:59] LABS: BASOPHILS % 0.4 % (0.0-1.0); EOSINOPHILS # (AUTO) 0.1 (0.0-0.4); EOSINOPHILS % 1.3 % (0.0-6.0); HEMATOCRIT 26.5 % (34.2-44.1); HEMOGLOBIN 8.4 g/dL (12.0-16.0); LYMPHOCYTES # (AUTO) 1.3 (1.0-3.2); LYMPHOCYTES % 15.1 % (18.0-39.1); MEAN CORPUSCULAR HEMOGLOBIN 25.8 pg (28-32); MEAN CORPUSCULAR HGB CONC 31.7 g/dL (31-35); MEAN CORPUSCULAR VOLUME 81.3 fL (81-99); MONOCYTES # (AUTO) 0.6 (0.2-0.8); MONOCYTES % 6.9 % (4.4-11.3); NEUTROPHILS # (AUTO) 5.8 (2.1-6.9); NEUTROPHILS % 68.2 % (38.7-80.0); PLATELET COUNT 369 x10e3/uL (140-360); RED BLOOD COUNT 3.26 x10e6/uL (3.6-5.1); RED CELL DISTRIBUTION WIDTH 19.7 % (11.7-14.4)
[2021-05-06 05:25] LABS: AMYLASE 77 U/L (25-125); LIPASE 226 U/L (8-78)
[2021-05-06 05:26] LABS: ANION GAP 13.5 mmol/L (8-16); BLOOD UREA NITROGEN < 5 mg/dL (7-26); CALCIUM 8.3 mg/dL (8.4-10.2); CARBON DIOXIDE 28 mmol/L (22-29); CHLORIDE 102 mmol/L (98-107); CREATININE, SERUM 0.67 mg/dL (0.57-1.11); EST GLOMERULAR FILTRATION RATE > 60 ML/MIN (60-); GLUCOSE 91 mg/dL (74-118); PHOSPHORUS 3.1 MG/DL (2.3-4.7); POTASSIUM 3.5 mmol/L (3.5-5.1); SODIUM 140 mmol/L (136-145); TRIGLYCERIDES 149 MG/DL (0-149)
[2021-05-06 05:27] LABS: BUN/CREATININE RATIO 7 (6-25)
[2021-05-06] MEDS: LEVOTHYROXINE SODIUM 75 MCG TAB PO SCH (05:53)
[2021-05-06 06:16] LABS: BAND NEUTROPHILS % (MANUAL) 2 %; EOSINOPHILS % (MANUAL) 2 % (0-7); LYMPHOCYTES % (MANUAL) 15 % (19-48); METAMYELOCYTES % (MANUAL) 3 % (0-0); MONOCYTES % (MANUAL) 2 % (3.4-9.0); NEUTROPHILS % (MANUAL) 73 % (40-74); NUCLEATED RED BLOOD CELLS 3
[2021-05-06 06:17] LABS: ANISOCYTOSIS SLIG; POIKILOCYTOSIS SLIGHT
[2021-05-06 06:18] LABS: PLATELET ESTIMATE ADEQUATE; PLATELET MORPHOLOGY COMMENT NORMAL; POLYCHROMASIA FEW; TARGET CELLS FEW
[2021-05-06] MEDS: CALCIUM CARBONATE 500 MG CHEWABLE TABS PO SCH ×4 (08:55→21:46)
[2021-05-06] MEDS: CALCITRIOL 0.25 MCG CAP PO SCH (08:55)
[2021-05-06] MEDS: IRON SUCROSE 100 MG in SODIUM CHLORIDE 0.9% 100 ML 100 ML IV SCH (14:23)
[2021-05-06] MEDS: CENTRAL TPN FORMULA 1 BAG IV SCH (20:55)
[2021-05-07] VITALS (7 sets, daily range): BP systolic 92–111; BP diastolic 52–74
[2021-05-07] MEDS: PIPERACILLIN/TAZOBACTAM 3.375 GM in SODIUM CHLORIDE 0.9% 50ML 50 ML IV SCH ×3 (02:00→18:18)
[2021-05-07] MEDS: HYDROMORPHONE 1MG/1ML INJ IV PRN ×6 (02:19→21:41)
[2021-05-07 05:21] LABS: BASOPHILS # (AUTO) 0.1 (0.0-0.1); BASOPHILS % 0.7 % (0.0-1.0); EOSINOPHILS # (AUTO) 0.1 (0.0-0.4); EOSINOPHILS % 1.6 % (0.0-6.0); HEMOGLOBIN 9.1 g/dL (12.0-16.0); LYMPHOCYTES # (AUTO) 1.1 (1.0-3.2); MEAN CORPUSCULAR HEMOGLOBIN 27.3 pg (28-32); MEAN CORPUSCULAR HGB CONC 32.5 g/dL (31-35); MEAN CORPUSCULAR VOLUME 84.1 fL (81-99); MONOCYTES # (AUTO) 0.5 (0.2-0.8); MONOCYTES % 6.5 % (4.4-11.3); NEUTROPHILS # (AUTO) 5.1 (2.1-6.9); NEUTROPHILS % 69.2 % (38.7-80.0); PLATELET COUNT 339 x10e3/uL (140-360); RED BLOOD COUNT 3.33 x10e6/uL (3.6-5.1); RED CELL DISTRIBUTION WIDTH 21.5 % (11.7-14.4)
[2021-05-07 05:54] LABS: ALANINE AMINOTRANSFERASE 23 IU/L (0-55); ALBUMIN 2.6 g/dL (3.5-5.0); ALBUMIN/GLOBULIN RATIO 0.7 (0.8-2.0); ALKALINE PHOSPHATASE 110 IU/L (40-150); ANION GAP 13.3 mmol/L (8-16); BLOOD UREA NITROGEN 6 mg/dL (7-26); BUN/CREATININE RATIO 9 (6-25); CALCIUM 7.9 mg/dL (8.4-10.2); CARBON DIOXIDE 28 mmol/L (22-29); CHLORIDE 102 mmol/L (98-107); CREATININE, SERUM 0.64 mg/dL (0.57-1.11); EST GLOMERULAR FILTRATION RATE > 60 ML/MIN (60-); GLUCOSE 129 mg/dL (74-118); LIPASE 271 U/L (8-78); POTASSIUM 3.3 mmol/L (3.5-5.1); SODIUM 140 mmol/L (136-145)
[2021-05-07] MEDS: LEVOTHYROXINE SODIUM 75 MCG TAB PO SCH (06:26)
[2021-05-07] MEDS: CALCITRIOL 0.25 MCG CAP PO SCH (09:43)
[2021-05-07] MEDS: CALCIUM CARBONATE 500 MG CHEWABLE TABS PO SCH ×4 (09:43→21:10)
[2021-05-07] MEDS: IRON SUCROSE 100 MG in SODIUM CHLORIDE 0.9% 100 ML 100 ML IV SCH (10:54)
[2021-05-07] MEDS: ONDANSETRON HCL INJ 2MG/ML 2ML 2 MG/ML VIAL IV PRN (14:22)
[2021-05-07] MEDS ORDERED: POTASSIUM CHLORIDE 10MEQ/100ML 100 ML IV ONE (15:00)
[2021-05-08] VITALS (7 sets, daily range): BP systolic 97–113; BP diastolic 63–75
[2021-05-08] MEDS: CENTRAL TPN FORMULA 1 BAG IV SCH (00:44)
[2021-05-08] MEDS: PIPERACILLIN/TAZOBACTAM 3.375 GM in SODIUM CHLORIDE 0.9% 50ML 50 ML IV SCH ×2 (02:03→09:00)
[2021-05-08] MEDS: HYDROMORPHONE 1MG/1ML INJ IV PRN ×4 (02:03→11:57)
[2021-05-08] MEDS: LEVOTHYROXINE SODIUM 75 MCG TAB PO SCH (05:16)
[2021-05-08 06:18] LABS: BASOPHILS % 0.4 % (0.0-1.0); EOSINOPHILS # (AUTO) 0.1 (0.0-0.4); EOSINOPHILS % 1.2 % (0.0-6.0); HEMATOCRIT 29.5 % (34.2-44.1); LYMPHOCYTES % 14.8 % (18.0-39.1); MEAN CORPUSCULAR HGB CONC 30.5 g/dL (31-35); MEAN CORPUSCULAR VOLUME 85.3 fL (81-99); MONOCYTES # (AUTO) 0.4 (0.2-0.8); NEUTROPHILS # (AUTO) 4.8 (2.1-6.9); NEUTROPHILS % 71.3 % (38.7-80.0); PLATELET COUNT 426 x10e3/uL (140-360); RED BLOOD COUNT 3.46 x10e6/uL (3.6-5.1); RED CELL DISTRIBUTION WIDTH 21.1 % (11.7-14.4)
[2021-05-08 07:50] LABS: ALANINE AMINOTRANSFERASE 20 IU/L (0-55); ALBUMIN 2.8 g/dL (3.5-5.0); ALBUMIN/GLOBULIN RATIO 0.7 (0.8-2.0); ALKALINE PHOSPHATASE 105 IU/L (40-150); ANION GAP 11.3 mmol/L (8-16); BLOOD UREA NITROGEN 9 mg/dL (7-26); BUN/CREATININE RATIO 15 (6-25); CALCIUM 7.5 mg/dL (8.4-10.2); CARBON DIOXIDE 25 mmol/L (22-29); CHLORIDE 106 mmol/L (98-107); CREATININE, SERUM 0.62 mg/dL (0.57-1.11); EST GLOMERULAR FILTRATION RATE > 60 ML/MIN (60-); GLUCOSE 132 mg/dL (74-118); SODIUM 138 mmol/L (136-145)
[2021-05-08 08:01] LABS: POTASSIUM 4.3 mmol/L (3.5-5.1)
[2021-05-08 08:20] LABS: MAGNESIUM 2.7 MG/DL (1.3-2.1); PHOSPHORUS 2.7 MG/DL (2.3-4.7)
[2021-05-08] MEDS: CALCIUM CARBONATE 500 MG CHEWABLE TABS PO SCH ×4 (08:31→21:04)
[2021-05-08] MEDS: CALCITRIOL 0.25 MCG CAP PO SCH (08:31)
[2021-05-08 08:38] LABS: BAND NEUTROPHILS % (MANUAL) 1 %; EOSINOPHILS % (MANUAL) 1 % (0-7); LYMPHOCYTES % (MANUAL) 21 % (19-48); MONOCYTES % (MANUAL) 4 % (3.4-9.0); MYELOCYTES % (MANUAL) 2 % (0-0); NEUTROPHILS % (MANUAL) 71 % (40-74); NUCLEATED RED BLOOD CELLS 1
[2021-05-08] MEDS: ONDANSETRON HCL INJ 2MG/ML 2ML 2 MG/ML VIAL IV PRN (08:42)
[2021-05-08] MEDS: IRON SUCROSE 100 MG in SODIUM CHLORIDE 0.9% 100 ML 100 ML IV SCH (09:30)
[2021-05-08] MEDS ORDERED: BISACODYL 10 MG SUPP PR ONE (12:30)
[2021-05-08] MEDS: MEROPENEM 500MG/ NS 50ML 50 ML IV SCH (17:29)
[2021-05-08] MEDS: KETOROLAC TROMETHAMINE 30 MG/ML VIAL IV PRN (21:15)
[2021-05-09] VITALS (10 sets, daily range): BP systolic 94–122; BP diastolic 59–93
[2021-05-09] MEDS: CENTRAL TPN FORMULA 1 BAG IV SCH (02:52)
[2021-05-09] MEDS: LEVOTHYROXINE SODIUM 75 MCG TAB PO SCH (05:33)
[2021-05-09] MEDS: MEROPENEM 500MG/ NS 50ML 50 ML IV SCH ×4 (05:33→17:58)
[2021-05-09 06:41] LABS: BASOPHILS # (AUTO) 0.1 (0.0-0.1); EOSINOPHILS # (AUTO) 0.1 (0.0-0.4); EOSINOPHILS % 1.4 % (0.0-6.0); HEMATOCRIT 33.8 % (34.2-44.1); HEMOGLOBIN 10.6 g/dL (12.0-16.0); LYMPHOCYTES # (AUTO) 1.2 (1.0-3.2); LYMPHOCYTES % 14.8 % (18.0-39.1); MEAN CORPUSCULAR HEMOGLOBIN 26.2 pg (28-32); MEAN CORPUSCULAR HGB CONC 31.4 g/dL (31-35); MEAN CORPUSCULAR VOLUME 83.5 fL (81-99); MONOCYTES # (AUTO) 0.5 (0.2-0.8); MONOCYTES % 5.8 % (4.4-11.3); NEUTROPHILS # (AUTO) 5.7 (2.1-6.9); NEUTROPHILS % 71.8 % (38.7-80.0); PLATELET COUNT 512 x10e3/uL (140-360); RED BLOOD COUNT 4.05 x10e6/uL (3.6-5.1); RED CELL DISTRIBUTION WIDTH 21.8 % (11.7-14.4)
[2021-05-09 07:02] LABS: ANION GAP 14.3 mmol/L (8-16); BLOOD UREA NITROGEN 8 mg/dL (7-26); BUN/CREATININE RATIO 13 (6-25); CALCIUM 8.4 mg/dL (8.4-10.2); CARBON DIOXIDE 20 mmol/L (22-29); CHLORIDE 108 mmol/L (98-107); CREATININE, SERUM 0.63 mg/dL (0.57-1.11); EST GLOMERULAR FILTRATION RATE > 60 ML/MIN (60-); GLUCOSE 140 mg/dL (74-118); LIPASE 246 U/L (8-78); MAGNESIUM 2.3 MG/DL (1.3-2.1); PHOSPHORUS 2.2 MG/DL (2.3-4.7); POTASSIUM 4.3 mmol/L (3.5-5.1); SODIUM 138 mmol/L (136-145); TRIGLYCERIDES 174 MG/DL (0-149)
[2021-05-09] MEDS: CALCIUM CARBONATE 500 MG CHEWABLE TABS PO SCH ×4 (08:35→21:00)
[2021-05-09] MEDS: CALCITRIOL 0.25 MCG CAP PO SCH (08:35)
[2021-05-09] MEDS: KETOROLAC TROMETHAMINE 30 MG/ML VIAL IV PRN (11:36)
[2021-05-09] MEDS: HYDROMORPHONE 1MG/1ML INJ IV PRN ×2 (14:32→23:16)
[2021-05-09] MEDS ORDERED: CENTRAL TPN FORMULA 1 BAG IV SCH (20:00)
[2021-05-10] VITALS (12 sets, daily range): BP systolic 95–107; BP diastolic 63–80
[2021-05-10] MEDS: LEVOTHYROXINE SODIUM 75 MCG TAB PO SCH (06:45)
[2021-05-10] MEDS: MEROPENEM 500MG/ NS 50ML 50 ML IV SCH ×5 (06:45→23:29)
[2021-05-10 07:22] LABS: BASOPHILS # (AUTO) 0.1 (0.0-0.1); BASOPHILS % 0.9 % (0.0-1.0); EOSINOPHILS # (AUTO) 0.1 (0.0-0.4); EOSINOPHILS % 1.6 % (0.0-6.0); HEMATOCRIT 33.8 % (34.2-44.1); HEMOGLOBIN 10.1 g/dL (12.0-16.0); LYMPHOCYTES # (AUTO) 1.8 (1.0-3.2); LYMPHOCYTES % 22.9 % (18.0-39.1); MEAN CORPUSCULAR HEMOGLOBIN 26.3 pg (28-32); MEAN CORPUSCULAR HGB CONC 29.9 g/dL (31-35); MONOCYTES # (AUTO) 0.4 (0.2-0.8); MONOCYTES % 5.4 % (4.4-11.3); NEUTROPHILS % 65.7 % (38.7-80.0); PLATELET COUNT 478 x10e3/uL (140-360); RED BLOOD COUNT 3.84 x10e6/uL (3.6-5.1); RED CELL DISTRIBUTION WIDTH 22.5 % (11.7-14.4)
[2021-05-10 07:31] LABS: CALCIUM IONIZED 1.2 mmol/L (1.09-1.30)
[2021-05-10 07:56] LABS: ANION GAP 14.2 mmol/L (8-16); BLOOD UREA NITROGEN 9 mg/dL (7-26); BUN/CREATININE RATIO 15 (6-25); CARBON DIOXIDE 22 mmol/L (22-29); CHLORIDE 106 mmol/L (98-107); EST GLOMERULAR FILTRATION RATE > 60 ML/MIN (60-); GLUCOSE 125 mg/dL (74-118); POTASSIUM 4.2 mmol/L (3.5-5.1); SODIUM 138 mmol/L (136-145)
[2021-05-10 08:10] LABS: AMYLASE 85 U/L (25-125); LIPASE 227 U/L (8-78); TRIGLYCERIDES 131 MG/DL (0-149)
[2021-05-10] MEDS: CALCITRIOL 0.25 MCG CAP PO SCH (08:47)
[2021-05-10] MEDS: CALCIUM CARBONATE 500 MG CHEWABLE TABS PO SCH ×4 (08:47→21:42)
[2021-05-10] MEDS: HYDROMORPHONE 1MG/1ML INJ IV PRN ×3 (08:48→23:29)
[2021-05-10] MEDS ORDERED: SODIUM PHOSPHATE IN 0.9 % NACL 15 MMOL in SODIUM CHLORIDE 0.9% 250ML 250 ML IV ONE ×2 (09:45)
[2021-05-10] MEDS: IRON-VITAMIN-MINERAL CAPSULE PO SCH ×2 (11:04→16:48)
[2021-05-10] MEDS: CENTRAL TPN FORMULA 1 BAG IV SCH (21:00)
[2021-05-11] VITALS (8 sets, daily range): BP systolic 90–105; BP diastolic 53–71
[2021-05-11] MEDS: CALCIUM CARBONATE 500 MG CHEWABLE TABS PO SCH ×5 (05:23→21:06)
[2021-05-11 06:06] LABS: BASOPHILS # (AUTO) 0.1 (0.0-0.1); EOSINOPHILS # (AUTO) 0.2 (0.0-0.4); EOSINOPHILS % 2.1 % (0.0-6.0); HEMATOCRIT 35.2 % (34.2-44.1); HEMOGLOBIN 10.8 g/dL (12.0-16.0); LYMPHOCYTES # (AUTO) 1.5 (1.0-3.2); LYMPHOCYTES % 21.9 % (18.0-39.1); MEAN CORPUSCULAR HGB CONC 30.7 g/dL (31-35); MEAN CORPUSCULAR VOLUME 84.8 fL (81-99); MONOCYTES # (AUTO) 0.5 (0.2-0.8); MONOCYTES % 6.5 % (4.4-11.3); NEUTROPHILS # (AUTO) 4.6 (2.1-6.9); NEUTROPHILS % 64.8 % (38.7-80.0); PLATELET COUNT 495 x10e3/uL (140-360); RED BLOOD COUNT 4.15 x10e6/uL (3.6-5.1); RED CELL DISTRIBUTION WIDTH 22.5 % (11.7-14.4)
[2021-05-11 06:14] LABS: ALANINE AMINOTRANSFERASE 72 IU/L (0-55); ALBUMIN 3.3 g/dL (3.5-5.0); ALBUMIN/GLOBULIN RATIO 0.8 (0.8-2.0); ALKALINE PHOSPHATASE 160 IU/L (40-150); ANION GAP 14.1 mmol/L (8-16); BLOOD UREA NITROGEN 9 mg/dL (7-26); BUN/CREATININE RATIO 16 (6-25); CALCIUM 8.7 mg/dL (8.4-10.2); CARBON DIOXIDE 22 mmol/L (22-29); CHLORIDE 106 mmol/L (98-107); CREATININE, SERUM 0.58 mg/dL (0.57-1.11); EST GLOMERULAR FILTRATION RATE > 60 ML/MIN (60-); GLUCOSE 128 mg/dL (74-118); POTASSIUM 4.1 mmol/L (3.5-5.1); SODIUM 138 mmol/L (136-145); TRIGLYCERIDES 137 MG/DL (0-149)
[2021-05-11] MEDS: MEROPENEM 500MG/ NS 50ML 50 ML IV SCH ×5 (06:17→23:38)
[2021-05-11] MEDS: LEVOTHYROXINE SODIUM 75 MCG TAB PO SCH (06:17)
[2021-05-11 06:27] LABS: MAGNESIUM 1.9 MG/DL (1.3-2.1); PHOSPHORUS 2.7 MG/DL (2.3-4.7)
[2021-05-11 06:35] LABS: AMYLASE 93 U/L (25-125); LIPASE 254 U/L (8-78)
[2021-05-11] MEDS: IRON-VITAMIN-MINERAL CAPSULE PO SCH ×2 (10:13→17:26)
[2021-05-11] MEDS: CALCITRIOL 0.25 MCG CAP PO SCH (10:13)
[2021-05-11] MEDS: HYDROMORPHONE 1MG/1ML INJ IV PRN ×2 (11:53→21:06)
[2021-05-11] MEDS: KETOROLAC TROMETHAMINE 30 MG/ML VIAL IV PRN (11:53)
[2021-05-11] MEDS: CENTRAL TPN FORMULA 1 BAG IV SCH (21:02)
[2021-05-12] VITALS (7 sets, daily range): BP systolic 96–107; BP diastolic 59–70
[2021-05-12] MEDS: CALCIUM CARBONATE 500 MG CHEWABLE TABS PO SCH ×5 (05:05→20:58)
[2021-05-12] MEDS: LEVOTHYROXINE SODIUM 75 MCG TAB PO SCH (05:06)
[2021-05-12] MEDS: MEROPENEM 500MG/ NS 50ML 50 ML IV SCH (05:06)
[2021-05-12] MEDS: HYDROMORPHONE 1MG/1ML INJ IV PRN ×3 (05:23→21:40)
[2021-05-12 06:56] LABS: BASOPHILS # (AUTO) 0.1 (0.0-0.1); BASOPHILS % 0.9 % (0.0-1.0); EOSINOPHILS # (AUTO) 0.1 (0.0-0.4); EOSINOPHILS % 2.2 % (0.0-6.0); HEMATOCRIT 34.1 % (34.2-44.1); HEMOGLOBIN 10.5 g/dL (12.0-16.0); LYMPHOCYTES # (AUTO) 1.4 (1.0-3.2); LYMPHOCYTES % 22.2 % (18.0-39.1); MEAN CORPUSCULAR HEMOGLOBIN 26.2 pg (28-32); MEAN CORPUSCULAR HGB CONC 30.8 g/dL (31-35); MONOCYTES # (AUTO) 0.4 (0.2-0.8); MONOCYTES % 6.4 % (4.4-11.3); NEUTROPHILS # (AUTO) 4.2 (2.1-6.9); NEUTROPHILS % 66.3 % (38.7-80.0); PLATELET COUNT 454 x10e3/uL (140-360); RED BLOOD COUNT 4.01 x10e6/uL (3.6-5.1); RED CELL DISTRIBUTION WIDTH 22.3 % (11.7-14.4)
[2021-05-12 07:32] LABS: CALCIUM IONIZED 1.3 mmol/L (1.09-1.30)
[2021-05-12 08:00] LABS: ANION GAP 13.9 mmol/L (8-16); BLOOD UREA NITROGEN 10 mg/dL (7-26); BUN/CREATININE RATIO 16 (6-25); CALCIUM 8.3 mg/dL (8.4-10.2); CARBON DIOXIDE 23 mmol/L (22-29); CHLORIDE 106 mmol/L (98-107); CREATININE, SERUM 0.62 mg/dL (0.57-1.11); EST GLOMERULAR FILTRATION RATE > 60 ML/MIN (60-); GLUCOSE 130 mg/dL (74-118); MAGNESIUM 1.9 MG/DL (1.3-2.1); POTASSIUM 3.9 mmol/L (3.5-5.1); SODIUM 139 mmol/L (136-145)
[2021-05-12] MEDS: CALCITRIOL 0.25 MCG CAP PO SCH (09:37)
[2021-05-12] MEDS: IRON-VITAMIN-MINERAL CAPSULE PO SCH ×2 (09:37→18:13)
[2021-05-12] MEDS: MEROPENEM 500 MG in SODIUM CHLORIDE 0.9% 50ML 50 ML IV SCH ×2 (13:19→18:13)
[2021-05-12] MEDS: CENTRAL TPN FORMULA 1 BAG IV SCH (20:00)
[2021-05-13] VITALS (8 sets, daily range): BP systolic 91–111; BP diastolic 58–75
[2021-05-13] MEDS: MEROPENEM 500 MG in SODIUM CHLORIDE 0.9% 50ML 50 ML IV SCH ×4 (00:27→18:16)
[2021-05-13] MEDS: CALCIUM CARBONATE 500 MG CHEWABLE TABS PO SCH ×5 (05:00→20:50)
[2021-05-13] MEDS: HYDROMORPHONE 1MG/1ML INJ IV PRN (05:31)
[2021-05-13] MEDS: LEVOTHYROXINE SODIUM 75 MCG TAB PO SCH (05:53)
[2021-05-13 06:09] LABS: BASOPHILS # (AUTO) 0.1 (0.0-0.1); BASOPHILS % 1.1 % (0.0-1.0); EOSINOPHILS # (AUTO) 0.2 (0.0-0.4); EOSINOPHILS % 2.5 % (0.0-6.0); HEMATOCRIT 34.7 % (34.2-44.1); HEMOGLOBIN 10.9 g/dL (12.0-16.0); LYMPHOCYTES # (AUTO) 1.5 (1.0-3.2); LYMPHOCYTES % 23.4 % (18.0-39.1); MEAN CORPUSCULAR HEMOGLOBIN 26.6 pg (28-32); MEAN CORPUSCULAR HGB CONC 31.4 g/dL (31-35); MEAN CORPUSCULAR VOLUME 84.6 fL (81-99); MONOCYTES # (AUTO) 0.4 (0.2-0.8); MONOCYTES % 6.3 % (4.4-11.3); NEUTROPHILS # (AUTO) 4.1 (2.1-6.9); NEUTROPHILS % 65.3 % (38.7-80.0); PLATELET COUNT 450 x10e3/uL (140-360); RED CELL DISTRIBUTION WIDTH 22.6 % (11.7-14.4)
[2021-05-13 06:26] LABS: ANION GAP 13.6 mmol/L (8-16); BLOOD UREA NITROGEN 12 mg/dL (7-26); BUN/CREATININE RATIO 20 (6-25); CALCIUM 8.8 mg/dL (8.4-10.2); CARBON DIOXIDE 23 mmol/L (22-29); CHLORIDE 104 mmol/L (98-107); EST GLOMERULAR FILTRATION RATE > 60 ML/MIN (60-); GLUCOSE 130 mg/dL (74-118); MAGNESIUM 1.8 MG/DL (1.3-2.1); PHOSPHORUS 3.6 MG/DL (2.3-4.7); POTASSIUM 3.6 mmol/L (3.5-5.1); SODIUM 137 mmol/L (136-145)
[2021-05-13 06:28] LABS: INR 0.98; PROTHROMBIN TIME 13.6 seconds (11.9-14.5)
[2021-05-13 06:47] LABS: CALCIUM IONIZED 1.2 mmol/L (1.09-1.30)
[2021-05-13] MEDS: CALCITRIOL 0.25 MCG CAP PO SCH (09:00)
[2021-05-13] MEDS: IRON-VITAMIN-MINERAL CAPSULE PO SCH ×2 (09:00→17:00)
[2021-05-13] MEDS ORDERED: BUPIVACAINE 0.25% 30ML SDV ONE (12:30)
[2021-05-13] MEDS ORDERED: MIDAZOLAM HCL 2 MG/2 ML VIAL ONE (14:31)
[2021-05-13] MEDS ORDERED: FENTANYL CITRATE/PF 100MCG/2 ML INJ ONE ×2 (14:31→16:38)
[2021-05-13] MEDS ORDERED: IBUPROFEN 800MG/ 200ML 200 ML IV ONE (15:10)
[2021-05-13] MEDS ORDERED: HYDROMORPHONE 1MG/1ML INJ IV PRN ×2 (16:00→19:30)
[2021-05-13] MEDS ORDERED: HYDROMORPHONE 1MG/1ML INJ ONE (16:24)
[2021-05-13] MEDS ORDERED: MORPHINE SULFATE INJ 2 MG/ML SYR ONE (16:52)
[2021-05-13] MEDS ORDERED: CENTRAL TPN FORMULA 1 BAG IV SCH (20:00)
[2021-05-14] VITALS (7 sets, daily range): BP systolic 90–119; BP diastolic 54–71
[2021-05-14] MEDS: HYDROMORPHONE 1MG/1ML INJ IV PRN ×5 (04:20→22:14)
[2021-05-14] MEDS: CALCIUM CARBONATE 500 MG CHEWABLE TABS PO SCH ×5 (05:00→21:25)
[2021-05-14 05:05] LABS: BASOPHILS # (AUTO) 0.1 (0.0-0.1); BASOPHILS % 0.8 % (0.0-1.0); EOSINOPHILS # (AUTO) 0.1 (0.0-0.4); EOSINOPHILS % 0.7 % (0.0-6.0); HEMOGLOBIN 10.5 g/dL (12.0-16.0); LYMPHOCYTES # (AUTO) 1.4 (1.0-3.2); LYMPHOCYTES % 15.4 % (18.0-39.1); MEAN CORPUSCULAR HEMOGLOBIN 26.7 pg (28-32); MEAN CORPUSCULAR HGB CONC 31.8 g/dL (31-35); MONOCYTES # (AUTO) 0.5 (0.2-0.8); MONOCYTES % 5.5 % (4.4-11.3); NEUTROPHILS # (AUTO) 6.8 (2.1-6.9); NEUTROPHILS % 77.1 % (38.7-80.0); PLATELET COUNT 412 x10e3/uL (140-360); RED BLOOD COUNT 3.93 x10e6/uL (3.6-5.1); RED CELL DISTRIBUTION WIDTH 21.9 % (11.7-14.4)
[2021-05-14] MEDS: MEROPENEM 500 MG in SODIUM CHLORIDE 0.9% 50ML 50 ML IV SCH ×5 (05:30→17:00)
[2021-05-14] MEDS: LEVOTHYROXINE SODIUM 75 MCG TAB PO SCH (05:30)
[2021-05-14 05:34] LABS: ALANINE AMINOTRANSFERASE 59 IU/L (0-55); ALBUMIN 3.3 g/dL (3.5-5.0); ALBUMIN/GLOBULIN RATIO 0.8 (0.8-2.0); ALKALINE PHOSPHATASE 129 IU/L (40-150); ANION GAP 13.7 mmol/L (8-16); BLOOD UREA NITROGEN 9 mg/dL (7-26); BUN/CREATININE RATIO 16 (6-25); CALCIUM 8.6 mg/dL (8.4-10.2); CARBON DIOXIDE 24 mmol/L (22-29); CHLORIDE 103 mmol/L (98-107); CREATININE, SERUM 0.58 mg/dL (0.57-1.11); EST GLOMERULAR FILTRATION RATE > 60 ML/MIN (60-); GLUCOSE 156 mg/dL (74-118); MAGNESIUM 1.8 MG/DL (1.3-2.1); PHOSPHORUS 2.7 MG/DL (2.3-4.7); POTASSIUM 3.7 mmol/L (3.5-5.1); SODIUM 137 mmol/L (136-145)
[2021-05-14 05:54] LABS: CALCIUM IONIZED 1.2 mmol/L (1.09-1.30)
[2021-05-14 06:27] LABS: MAGNESIUM 1.8 MG/DL (1.3-2.1)
[2021-05-14 06:48] LABS: PHOSPHORUS 2.7 MG/DL (2.3-4.7)
[2021-05-14 06:53] LABS: AMYLASE 72 U/L (25-125); LIPASE 121 U/L (8-78)
[2021-05-14] MEDS: CALCITRIOL 0.25 MCG CAP PO SCH (08:41)
[2021-05-14] MEDS: IRON-VITAMIN-MINERAL CAPSULE PO SCH ×2 (08:41→17:00)
[2021-05-14] MEDS ORDERED: SODIUM CHLORIDE 0.9% 250ML 250 ML ONE (12:09)
[2021-05-14] MEDS ORDERED: LIDOCAINE HCL 2% LOCAL INJ 5 ML SDV VIAL INJ ONE (12:44)
[2021-05-14] MEDS ORDERED: ONDANSETRON HCL INJ 2MG/ML 2ML 2 MG/ML VIAL ONE (12:44)
[2021-05-14] MEDS ORDERED: ROCURONIUM BROMIDE 10 MG/ML 5ML VIAL IV ONE (12:44)
[2021-05-14] MEDS ORDERED: GLYCOPYRROLATE INJ 0.2 MG/ML VIAL ONE (12:44)
[2021-05-14] MEDS ORDERED: POVIDONE IODINE 0.05% 0.05 % ML PO ONE (12:44)
[2021-05-14] MEDS ORDERED: SEVOFLURANE INHAL SOLN 250 ML PEN BTL ONE (12:44)
[2021-05-14] MEDS ORDERED: PROPOFOL IV EMULSION 10 MG/ML 20 ML VIAL ONE (12:44)
[2021-05-14] MEDS ORDERED: DEXAMETHASONE SOD PHOS INJ 4 MG/ML VIAL ONE (12:44)
[2021-05-14] MEDS ORDERED: NEOSTIGMINE 1 MG/ML 10ML VIAL ONE (12:44)
[2021-05-14] MEDS ORDERED: ELIQUIS5 MG PO (21:10)
[2021-05-14] MEDS ORDERED: SIMVASTATIN20 MG PO (21:10)
[2021-05-14] MEDS ORDERED: NEURONTIN300 MG PO (21:10)
[2021-05-14] MEDS ORDERED: REMERON15 MG PO (21:10)
[2021-05-15] VITALS (8 sets, daily range): BP systolic 100–112; BP diastolic 58–85
[2021-05-15] MEDS: CALCIUM CARBONATE 500 MG CHEWABLE TABS PO SCH ×6 (02:22→22:21)
[2021-05-15] MEDS: LEVOTHYROXINE SODIUM 75 MCG TAB PO SCH (06:01)
[2021-05-15] MEDS: MEROPENEM 500 MG in SODIUM CHLORIDE 0.9% 50ML 50 ML IV SCH ×5 (06:01→18:00)
[2021-05-15 07:56] LABS: BASOPHILS # (AUTO) 0.1 (0.0-0.1); BASOPHILS % 1.1 % (0.0-1.0); EOSINOPHILS # (AUTO) 0.2 (0.0-0.4); EOSINOPHILS % 2.5 % (0.0-6.0); HEMATOCRIT 34.9 % (34.2-44.1); HEMOGLOBIN 11.1 g/dL (12.0-16.0); LYMPHOCYTES # (AUTO) 1.3 (1.0-3.2); LYMPHOCYTES % 19.8 % (18.0-39.1); MEAN CORPUSCULAR HEMOGLOBIN 26.9 pg (28-32); MEAN CORPUSCULAR HGB CONC 31.8 g/dL (31-35); MEAN CORPUSCULAR VOLUME 84.5 fL (81-99); MONOCYTES # (AUTO) 0.4 (0.2-0.8); MONOCYTES % 5.4 % (4.4-11.3); NEUTROPHILS # (AUTO) 4.6 (2.1-6.9); NEUTROPHILS % 70.9 % (38.7-80.0); PLATELET COUNT 357 x10e3/uL (140-360); RED BLOOD COUNT 4.13 x10e6/uL (3.6-5.1); RED CELL DISTRIBUTION WIDTH 22.7 % (11.7-14.4)
[2021-05-15 08:04] LABS: CALCIUM IONIZED 1.2 mmol/L (1.09-1.30)
[2021-05-15 08:17] LABS: ANION GAP 11.8 mmol/L (8-16); BLOOD UREA NITROGEN 11 mg/dL (7-26); BUN/CREATININE RATIO 19 (6-25); CALCIUM 8.6 mg/dL (8.4-10.2); CARBON DIOXIDE 27 mmol/L (22-29); CHLORIDE 103 mmol/L (98-107); CREATININE, SERUM 0.57 mg/dL (0.57-1.11); EST GLOMERULAR FILTRATION RATE > 60 ML/MIN (60-); GLUCOSE 124 mg/dL (74-118); MAGNESIUM 1.8 MG/DL (1.3-2.1); PHOSPHORUS 2.9 MG/DL (2.3-4.7); POTASSIUM 3.8 mmol/L (3.5-5.1); SODIUM 138 mmol/L (136-145)
[2021-05-15 08:28] LABS: AMYLASE 84 U/L (25-125); LIPASE 177 U/L (8-78)
[2021-05-15] MEDS: HYDROMORPHONE 1MG/1ML INJ IV PRN ×3 (08:55→22:37)
[2021-05-15] MEDS: IRON-VITAMIN-MINERAL CAPSULE PO SCH ×2 (08:58→17:00)
[2021-05-15] MEDS: CALCITRIOL 0.25 MCG CAP PO SCH (08:58)
[2021-05-15] MEDS: CENTRAL TPN FORMULA 1 BAG IV SCH (21:40)
[2021-05-16] VITALS (8 sets, daily range): BP systolic 93–116; BP diastolic 63–70
[2021-05-16] MEDS: MEROPENEM 500 MG in SODIUM CHLORIDE 0.9% 50ML 50 ML IV SCH ×4 (00:25→17:55)
[2021-05-16] MEDS: CALCIUM CARBONATE 500 MG CHEWABLE TABS PO SCH ×6 (02:30→21:11)
[2021-05-16] MEDS: LEVOTHYROXINE SODIUM 75 MCG TAB PO SCH (06:05)
[2021-05-16] MEDS: HYDROMORPHONE 1MG/1ML INJ IV PRN ×3 (06:05→18:31)
[2021-05-16 06:34] LABS: BASOPHILS # (AUTO) 0.1 (0.0-0.1); BASOPHILS % 1.3 % (0.0-1.0); EOSINOPHILS # (AUTO) 0.2 (0.0-0.4); EOSINOPHILS % 2.9 % (0.0-6.0); HEMATOCRIT 32.8 % (34.2-44.1); HEMOGLOBIN 10.3 g/dL (12.0-16.0); LYMPHOCYTES # (AUTO) 1.6 (1.0-3.2); MEAN CORPUSCULAR HEMOGLOBIN 26.8 pg (28-32); MEAN CORPUSCULAR HGB CONC 31.4 g/dL (31-35); MEAN CORPUSCULAR VOLUME 85.4 fL (81-99); MONOCYTES # (AUTO) 0.5 (0.2-0.8); MONOCYTES % 6.6 % (4.4-11.3); NEUTROPHILS # (AUTO) 4.4 (2.1-6.9); NEUTROPHILS % 64.6 % (38.7-80.0); PLATELET COUNT 320 x10e3/uL (140-360); RED BLOOD COUNT 3.84 x10e6/uL (3.6-5.1); RED CELL DISTRIBUTION WIDTH 22.7 % (11.7-14.4)
[2021-05-16 07:11] LABS: AMYLASE 96 U/L (25-125); LIPASE 207 U/L (8-78)
[2021-05-16 07:24] LABS: ANION GAP 13.8 mmol/L (8-16); BLOOD UREA NITROGEN 13 mg/dL (7-26); BUN/CREATININE RATIO 22 (6-25); CARBON DIOXIDE 28 mmol/L (22-29); CHLORIDE 102 mmol/L (98-107); CREATININE, SERUM 0.58 mg/dL (0.57-1.11); EST GLOMERULAR FILTRATION RATE > 60 ML/MIN (60-); GLUCOSE 94 mg/dL (74-118); MAGNESIUM 1.9 MG/DL (1.3-2.1); PHOSPHORUS 3.9 MG/DL (2.3-4.7); POTASSIUM 3.8 mmol/L (3.5-5.1); SODIUM 140 mmol/L (136-145)
[2021-05-16] MEDS: CALCITRIOL 0.25 MCG CAP PO SCH (09:34)
[2021-05-16] MEDS: IRON-VITAMIN-MINERAL CAPSULE PO SCH ×2 (09:34→17:55)
[2021-05-16] MEDS ORDERED: ACETAMINOPHEN/CODEINE 300MG - 30MG TAB PO PRN (14:15)
[2021-05-16] MEDS: CENTRAL TPN FORMULA 1 BAG IV SCH (20:00)
[2021-05-17] MEDS: HYDROMORPHONE 1MG/1ML INJ IV PRN ×4 (00:31→22:33)
[2021-05-17] MEDS: CALCIUM CARBONATE 500 MG CHEWABLE TABS PO SCH ×6 (02:00→21:37)
[2021-05-17] MEDS: LEVOTHYROXINE SODIUM 75 MCG TAB PO SCH (05:39)
[2021-05-17] MEDS: MEROPENEM 500 MG in SODIUM CHLORIDE 0.9% 50ML 50 ML IV SCH ×6 (05:39→23:45)
[2021-05-17 06:33] LABS: ANION GAP 12.7 mmol/L (8-16); BLOOD UREA NITROGEN 13 mg/dL (7-26); BUN/CREATININE RATIO 24 (6-25); CALCIUM 9.1 mg/dL (8.4-10.2); CARBON DIOXIDE 30 mmol/L (22-29); CHLORIDE 101 mmol/L (98-107); CREATININE, SERUM 0.55 mg/dL (0.57-1.11); EST GLOMERULAR FILTRATION RATE > 60 ML/MIN (60-); GLUCOSE 111 mg/dL (74-118); LIPASE 182 U/L (8-78); MAGNESIUM 1.8 MG/DL (1.3-2.1); PHOSPHORUS 4.1 MG/DL (2.3-4.7); POTASSIUM 3.7 mmol/L (3.5-5.1); SODIUM 140 mmol/L (136-145)
[2021-05-17] MEDS: CALCITRIOL 0.25 MCG CAP PO SCH (09:12)
[2021-05-17] MEDS: IRON-VITAMIN-MINERAL CAPSULE PO SCH ×2 (09:12→17:31)
[2021-05-17] MEDS: CENTRAL TPN FORMULA 1 BAG IV SCH (20:00)
[2021-05-18] MEDS: CALCIUM CARBONATE 500 MG CHEWABLE TABS PO SCH ×6 (02:00→22:00)
[2021-05-18] MEDS: MEROPENEM 500 MG in SODIUM CHLORIDE 0.9% 50ML 50 ML IV SCH (06:00)
[2021-05-18] MEDS: LEVOTHYROXINE SODIUM 75 MCG TAB PO SCH (06:00)
[2021-05-18 09:44] LABS: ANION GAP 13.9 mmol/L (8-16); BLOOD UREA NITROGEN 12 mg/dL (7-26); BUN/CREATININE RATIO 21 (6-25); CALCIUM 9.1 mg/dL (8.4-10.2); CARBON DIOXIDE 29 mmol/L (22-29); CHLORIDE 101 mmol/L (98-107); CREATININE, SERUM 0.58 mg/dL (0.57-1.11); EST GLOMERULAR FILTRATION RATE > 60 ML/MIN (60-); GLUCOSE 113 mg/dL (74-118); LIPASE 159 U/L (8-78); MAGNESIUM 1.9 MG/DL (1.3-2.1); PHOSPHORUS 3.4 MG/DL (2.3-4.7); POTASSIUM 3.9 mmol/L (3.5-5.1); SODIUM 140 mmol/L (136-145)
[2021-05-19] MEDS: CALCIUM CARBONATE 500 MG CHEWABLE TABS PO SCH ×6 (02:00→21:16)
[2021-05-19] MEDS: LEVOTHYROXINE SODIUM 75 MCG TAB PO SCH (06:00)
[2021-05-19 08:00] VITALS: BP 102/71
[2021-05-19] MEDS: IRON-VITAMIN-MINERAL CAPSULE PO SCH ×2 (09:00→16:49)
[2021-05-19] MEDS: CALCITRIOL 0.25 MCG CAP PO SCH (09:00)
[2021-05-19 12:00] VITALS: BP 111/69
[2021-05-19] MEDS: HYDROMORPHONE 1MG/1ML INJ IV PRN ×2 (14:40→23:41)
[2021-05-19 15:53] VITALS: BP 100/67
[2021-05-19 19:35] VITALS: BP 106/76
[2021-05-19] MEDS: CENTRAL TPN FORMULA 1 BAG IV SCH (20:00)
[2021-05-19 21:00] VITALS: BP 106/76
[2021-05-19 21:26] LABS: ANION GAP 11.9 mmol/L (8-16); CALCIUM IONIZED 1.3 mmol/L (1.09-1.30); CREATININE, SERUM 0.58 mg/dL (0.57-1.11); MAGNESIUM 1.7 MG/DL (1.3-2.1); PHOSPHORUS 3.5 MG/DL (2.3-4.7); POTASSIUM 3.9 mmol/L (3.5-5.1)
[2021-05-19 21:27] LABS: ALBUMIN 3.3 g/dL (3.5-5.0); ALBUMIN/GLOBULIN RATIO 0.8 (0.8-2.0); HEMATOCRIT 33.3 % (34.2-44.1); HEMOGLOBIN 10.4 g/dL (12.0-16.0); MEAN CORPUSCULAR HGB CONC 31.2 g/dL (31-35); MEAN CORPUSCULAR VOLUME 86.5 fL (81-99); RED BLOOD COUNT 3.85 x10e6/uL (3.6-5.1)
[2021-05-19 21:28] LABS: BASOPHILS % 1.1 % (0.0-1.0); EOSINOPHILS % 5.1 % (0.0-6.0); LYMPHOCYTES % 25.2 % (18.0-39.1); NEUTROPHILS % 61.1 % (38.7-80.0); PLATELET COUNT 272 x10e3/uL (140-360); RED CELL DISTRIBUTION WIDTH 22.8 % (11.7-14.4)
[2021-05-20] VITALS (8 sets, daily range): BP systolic 97–115; BP diastolic 63–78
[2021-05-20] MEDS: CALCIUM CARBONATE 500 MG CHEWABLE TABS PO SCH ×6 (01:27→21:17)
[2021-05-20] MEDS: LEVOTHYROXINE SODIUM 75 MCG TAB PO SCH (05:56)
[2021-05-20 06:18] LABS: BASOPHILS # (AUTO) 0.1 (0.0-0.1); BASOPHILS % 1.5 % (0.0-1.0); EOSINOPHILS # (AUTO) 0.3 (0.0-0.4); HEMATOCRIT 36.3 % (34.2-44.1); HEMOGLOBIN 11.4 g/dL (12.0-16.0); LYMPHOCYTES # (AUTO) 2.1 (1.0-3.2); LYMPHOCYTES % 33.9 % (18.0-39.1); MEAN CORPUSCULAR HEMOGLOBIN 27.1 pg (28-32); MEAN CORPUSCULAR HGB CONC 31.4 g/dL (31-35); MEAN CORPUSCULAR VOLUME 86.2 fL (81-99); MONOCYTES # (AUTO) 0.5 (0.2-0.8); MONOCYTES % 7.8 % (4.4-11.3); NEUTROPHILS # (AUTO) 3.2 (2.1-6.9); NEUTROPHILS % 51.5 % (38.7-80.0); PLATELET COUNT 295 x10e3/uL (140-360); RED BLOOD COUNT 4.21 x10e6/uL (3.6-5.1); RED CELL DISTRIBUTION WIDTH 22.9 % (11.7-14.4)
[2021-05-20 07:04] LABS: ANION GAP 14.9 mmol/L (8-16); CALCIUM 9.3 mg/dL (8.4-10.2); CREATININE, SERUM 0.58 mg/dL (0.57-1.11); MAGNESIUM 1.8 MG/DL (1.3-2.1); POTASSIUM 3.9 mmol/L (3.5-5.1)
[2021-05-20] MEDS: HYDROMORPHONE 1MG/1ML INJ IV PRN ×3 (07:40→23:38)
[2021-05-20] MEDS: CALCITRIOL 0.25 MCG CAP PO SCH (08:49)
[2021-05-20] MEDS: IRON-VITAMIN-MINERAL CAPSULE PO SCH ×2 (08:49→17:12)
[2021-05-20] MEDS ORDERED: CENTRAL TPN FORMULA 1 BAG IV SCH (20:00)
[2021-05-20] MEDS: ONDANSETRON HCL INJ 2MG/ML 2ML 2 MG/ML VIAL IV PRN (23:38)
[2021-05-21] VITALS (7 sets, daily range): BP systolic 101–105; BP diastolic 63–74
[2021-05-21] MEDS: CALCIUM CARBONATE 500 MG CHEWABLE TABS PO SCH ×6 (02:45→21:41)
[2021-05-21] MEDS: LEVOTHYROXINE SODIUM 75 MCG TAB PO SCH (05:14)
[2021-05-21 06:20] LABS: BASOPHILS # (AUTO) 0.1 (0.0-0.1); BASOPHILS % 1.6 % (0.0-1.0); EOSINOPHILS # (AUTO) 0.2 (0.0-0.4); EOSINOPHILS % 4.4 % (0.0-6.0); HEMATOCRIT 30.2 % (34.2-44.1); HEMOGLOBIN 9.6 g/dL (12.0-16.0); LYMPHOCYTES # (AUTO) 1.6 (1.0-3.2); LYMPHOCYTES % 33.1 % (18.0-39.1); MEAN CORPUSCULAR HEMOGLOBIN 27.2 pg (28-32); MEAN CORPUSCULAR HGB CONC 31.8 g/dL (31-35); MEAN CORPUSCULAR VOLUME 85.6 fL (81-99); MONOCYTES # (AUTO) 0.4 (0.2-0.8); MONOCYTES % 7.9 % (4.4-11.3); NEUTROPHILS # (AUTO) 2.6 (2.1-6.9); NEUTROPHILS % 52.6 % (38.7-80.0); PLATELET COUNT 258 x10e3/uL (140-360); RED BLOOD COUNT 3.53 x10e6/uL (3.6-5.1); RED CELL DISTRIBUTION WIDTH 22.9 % (11.7-14.4)
[2021-05-21 06:47] LABS: ANION GAP 10.9 mmol/L (8-16); CALCIUM 9.7 mg/dL (8.4-10.2); CREATININE, SERUM 0.56 mg/dL (0.57-1.11); MAGNESIUM 1.8 MG/DL (1.3-2.1); POTASSIUM 3.9 mmol/L (3.5-5.1)
[2021-05-21 07:03] LABS: PHOSPHORUS 4.3 MG/DL (2.3-4.7)
[2021-05-21] MEDS: IRON-VITAMIN-MINERAL CAPSULE PO SCH ×2 (08:19→16:42)
[2021-05-21] MEDS: CALCITRIOL 0.25 MCG CAP PO SCH (08:19)
[2021-05-21] MEDS: HYDROMORPHONE 1MG/1ML INJ IV PRN ×2 (08:20→16:30)
[2021-05-22 00:55] VITALS: BP 107/65
[2021-05-22] MEDS: CALCIUM CARBONATE 500 MG CHEWABLE TABS PO SCH ×3 (01:59→09:19)
[2021-05-22 04:00] VITALS: BP 113/67
[2021-05-22] MEDS: LEVOTHYROXINE SODIUM 75 MCG TAB PO SCH (05:37)
[2021-05-22 05:53] LABS: CALCIUM 9.3 mg/dL (8.4-10.2); CREATININE, SERUM 0.67 mg/dL (0.57-1.11); MAGNESIUM 1.7 MG/DL (1.3-2.1)
[2021-05-22 08:12] VITALS: BP 105/79
[2021-05-22 09:00] VITALS: BP 105/79
[2021-05-22] MEDS: IRON-VITAMIN-MINERAL CAPSULE PO SCH (09:19)
[2021-05-22] MEDS: CALCITRIOL 0.25 MCG CAP PO SCH (09:19)
[2021-05-22] MEDS: HYDROMORPHONE 1MG/1ML INJ IV PRN (09:20)
[2021-05-22 12:14] VITALS: BP 103/68
[2021-05-22] MEDS ORDERED: SYNTHROID75 MCG PO (12:42)
[2021-05-22] MEDS ORDERED: FEROCON CAPSUL1 EACH PO (12:42)
[2021-05-22] MEDS ORDERED: ROCALTROL0.25 MCG PO (12:42)
[2021-05-22] MEDS ORDERED: TYLENOL # 31 EA PO (13:16)
[2021-05-22] MEDS ORDERED: PROTONIX20 MG PO (13:17)
== END 2021-05-22 13:50 | disposition home or self-care (01) | DRG 853 ==
LOC: ER 04:35 → ERHOLD 07:18 → MED/SURG3 08:40
PROVIDERS: ADMIT Internal Medicine; ATTEND Internal Medicine
PROC: 02HV33Z Insertion of Infusion Device into Superior Vena Cava, Percutaneous Approach (ICD-10-PCS; 2021-04-29)
PROC: 30243N1 Transfusion of Nonautologous Red Blood Cells into Central Vein, Percutaneous Approach (ICD-10-PCS; 2021-05-03)
PROC: 0FT44ZZ Resection of Gallbladder, Percutaneous Endoscopic Approach (ICD-10-PCS; principal; 2021-05-13 13:30)
DX: A41.9 Sepsis, unspecified organism (principal); K85.12 Biliary acute pancreatitis with infected necrosis; K85.82 Other acute pancreatitis with infected necrosis; R18.8 Other ascites; E87.1 Hypo-osmolality and hyponatremia; J91.8 Pleural effusion in other conditions classified elsewhere; K81.0 Acute cholecystitis; K80.00 Calculus of gallbladder with acute cholecystitis without obstruction; R65.20 Severe sepsis without septic shock; E83.51 Hypocalcemia; E03.9 Hypothyroidism, unspecified; D50.9 Iron deficiency anemia, unspecified; E83.39 Other disorders of phosphorus metabolism; F17.200 Nicotine dependence, unspecified, uncomplicated; E66.9 Obesity, unspecified; Z68.38 Body mass index [BMI] 38.0-38.9, adult; E87.6 Hypokalemia; K86.89 Other specified diseases of pancreas
CPT/HCPCS: 36415; 36569; 71045; 71046; 74177; 74181; 74183; 76705; 80048; 80053; 80076; 81001; 81025; 82150; 82306; 82607; 82746; 82948; 83540; 83605; 83690; 83735; 83970; 84100; 84436; 84439; 84443; 84466; 84478; 84479; 85014; 85018; 85025; 85045; 85610; 86850; 86900; 86920; 87040; 88304; 96361; 96365; 96366; 97139; 99284; J0500; J0610; J1100; J1170; J1756; J1885; J1940; J2001; J2185; J2250; J2270; J2405; J2543; J2710; J2997; J3010; J3475; J3480; J7030; J7040; J7050; J7121; P9016; Q9967; U0002

== ENCOUNTER 2021-09-26 18:32 | Emergency (ER) | payer MEDICAID ==
[~2021-09-26] VITALS: Ht 154.9 cm; Wt 93.0 kg
[~2021-09-26 18:32] MED LIST: ELIQUIS5 MG PO; FEROCON CAPSUL1 EACH PO; NEURONTIN300 MG PO; PROTONIX20 MG PO; REMERON15 MG PO; ROCALTROL0.25 MCG PO; SIMVASTATIN20 MG PO; SYNTHROID75 MCG PO; TYLENOL # 31 EA PO
[2021-09-26] MEDS ORDERED: SODIUM CHLORIDE 0.9% 1000ML 1,000 ML IV STA (18:45)
[2021-09-26] MEDS ORDERED: DIPHENHYDRAMINE HCL INJ 50 MG/ML VIAL IV STA (18:45)
[2021-09-26] MEDS ORDERED: METOCLOPRAMIDE HCL 10 MG/2ML VIAL IV ONE (18:45)
[2021-09-26 19:13] LABS: BASOPHILS # (AUTO) 0.1 (0.0-0.1); BASOPHILS % 1.1 % (0.0-1.0); EOSINOPHILS # (AUTO) 0.2 (0.0-0.4); EOSINOPHILS % 2.3 % (0.0-6.0); HEMATOCRIT 37.9 % (34.2-44.1); HEMOGLOBIN 12.6 g/dL (12.0-16.0); LYMPHOCYTES # (AUTO) 2.7 (1.0-3.2); LYMPHOCYTES % 31.4 % (18.0-39.1); MEAN CORPUSCULAR HEMOGLOBIN 30.4 pg (28-32); MEAN CORPUSCULAR HGB CONC 33.2 g/dL (31-35); MEAN CORPUSCULAR VOLUME 91.3 fL (81-99); MONOCYTES # (AUTO) 0.5 (0.2-0.8); MONOCYTES % 6.2 % (4.4-11.3); NEUTROPHILS % 58.3 % (38.7-80.0); PLATELET COUNT 376 x10e3/uL (140-360); RED BLOOD COUNT 4.15 x10e6/uL (3.6-5.1); RED CELL DISTRIBUTION WIDTH 12.9 % (11.7-14.4)
[2021-09-26 19:24] LABS: ALANINE AMINOTRANSFERASE 55 IU/L (0-55); ALBUMIN 4.1 g/dL (3.5-5.0); ALBUMIN/GLOBULIN RATIO 1.1 (0.8-2.0); ALKALINE PHOSPHATASE 61 IU/L (40-150); ANION GAP 13.4 mmol/L (8-16); BLOOD UREA NITROGEN 11 mg/dL (7-26); BUN/CREATININE RATIO 14 (6-25); CALCIUM 8.6 mg/dL (8.4-10.2); CARBON DIOXIDE 22 mmol/L (22-29); CHLORIDE 107 mmol/L (98-107); CREATININE, SERUM 0.76 mg/dL (0.57-1.11); EST GLOMERULAR FILTRATION RATE 91 ML/MIN (60-); GLUCOSE 88 mg/dL (74-118); POTASSIUM 3.4 mmol/L (3.5-5.1); SODIUM 139 mmol/L (136-145)
[2021-09-26] MEDS ORDERED: FIORICET 50-301 EACH PO (20:54)
[2021-09-26] MEDS ORDERED: KETOROLAC TROMETHAMINE 30 MG/ML VIAL IV STA (20:55)
[2021-09-26] MEDS ORDERED: ONDANSETRON HCL INJ 2MG/ML 2ML 2 MG/ML VIAL IV STA (21:29)
[2021-09-26] MEDS ORDERED: Morphine 4mg Syringe 4 MG/ML INJ IV ONE (21:30)
== END 2021-09-26 22:26 | disposition home or self-care (01) ==
LOC: ER 18:45
DX: R51.9 Headache, unspecified (principal)
CPT/HCPCS: 36415; 70450; 80053; 84702; 85025; 93005; 99284; J1200; J1885; J2270; J2405; J2765; J7030

== ENCOUNTER 2021-10-23 17:28 | Emergency (ER) | payer MEDICAID ==
[~2021-10-23] VITALS: Ht 154.9 cm; Wt 93.0 kg
[~2021-10-23 17:28] MED LIST changes: +FIORICET 50-301 EACH PO
[2021-10-23 18:06] LABS: BASOPHILS # (AUTO) 0.1 (0.0-0.1); EOSINOPHILS # (AUTO) 0.1 (0.0-0.4); EOSINOPHILS % 1.6 % (0.0-6.0); HEMATOCRIT 37.8 % (34.2-44.1); HEMOGLOBIN 12.4 g/dL (12.0-16.0); LYMPHOCYTES # (AUTO) 1.8 (1.0-3.2); LYMPHOCYTES % 25.3 % (18.0-39.1); MEAN CORPUSCULAR HEMOGLOBIN 30.2 pg (28-32); MEAN CORPUSCULAR HGB CONC 32.8 g/dL (31-35); MEAN CORPUSCULAR VOLUME 92.2 fL (81-99); MONOCYTES # (AUTO) 0.4 (0.2-0.8); MONOCYTES % 5.7 % (4.4-11.3); NEUTROPHILS # (AUTO) 4.6 (2.1-6.9); PLATELET COUNT 333 x10e3/uL (140-360); RED CELL DISTRIBUTION WIDTH 13.4 % (11.7-14.4)
[2021-10-23 18:09] LABS: CLARITY,URINE SL CLOUDY (CLEAR); COLOR,URINE YELLOW (YELLOW); KETONES,URINE NEGATIVE (NEGATIVE); LEUKOCYTE ESTERASE ,URINE NEGATIVE (NEGATIVE); NITRITE,URINE NEGATIVE (NEGATIVE); PROTEIN,URINE DIPSTICK NEGATIVE (NEGATIVE); URINE UROBILINOGEN 0.2 mg/dL (0.2 - 1)
[2021-10-23 18:20] LABS: BACTERIA,URINE FEW /HPF; EPITHELIAL CELLS,URINE MODERATE /LPF
[2021-10-23 18:22] LABS: ANION GAP 14.3 mmol/L (8-16); CALCIUM 9.1 mg/dL (8.4-10.2); CREATININE, SERUM 0.74 mg/dL (0.57-1.11); POTASSIUM 3.3 mmol/L (3.5-5.1)
[2021-10-23] MEDS ORDERED: CEPHALEXIN500 MG PO (20:16)
[2021-10-23 20:29] VITALS: BP 124/94
== END 2021-10-23 20:31 | disposition home or self-care (01) ==
LOC: ER 17:35
DX: O20.0 Threatened abortion (principal); E03.9 Hypothyroidism, unspecified
CPT/HCPCS: 36415; 76801; 76830; 80048; 81001; 81025; 84702; 85025; 99284

== ENCOUNTER 2022-07-17 22:42 | Emergency (ER) | payer MEDICAID ==
[~2022-07-17] VITALS: Ht 154.9 cm; Wt 93.0 kg
[2022-07-17] MEDS: SODIUM CHLORIDE 0.9% 1000ML 1,000 ML IV SCH (16:00)
[~2022-07-17 22:42] MED LIST changes: +CEPHALEXIN500 MG PO
[2022-07-17 23:33] LABS: BASOPHILS % 0.3 % (0.0-1.0); EOSINOPHILS # (AUTO) 0.1 (0.0-0.4); EOSINOPHILS % 0.6 % (0.0-6.0); HEMATOCRIT 36.5 % (34.2-44.1); HEMOGLOBIN 11.8 g/dL (12.0-16.0); LYMPHOCYTES % 17.8 % (18.0-39.1); MEAN CORPUSCULAR HEMOGLOBIN 29.2 pg (28-32); MEAN CORPUSCULAR HGB CONC 32.3 g/dL (31-35); MEAN CORPUSCULAR VOLUME 90.3 fL (81-99); MONOCYTES # (AUTO) 0.4 (0.2-0.8); MONOCYTES % 3.4 % (4.4-11.3); NEUTROPHILS # (AUTO) 8.6 (2.1-6.9); NEUTROPHILS % 77.5 % (38.7-80.0); PLATELET COUNT 425 x10e3/uL (140-360); RED BLOOD COUNT 4.04 x10e6/uL (3.6-5.1); RED CELL DISTRIBUTION WIDTH 12.9 % (11.7-14.4)
[2022-07-17 23:36] LABS: CLARITY,URINE CLOUDY (CLEAR); COLOR,URINE STRAW (YELLOW); KETONES,URINE NEGATIVE (NEGATIVE); LEUKOCYTE ESTERASE ,URINE NEGATIVE (NEGATIVE); NITRITE,URINE NEGATIVE (NEGATIVE); PROTEIN,URINE DIPSTICK 2+ (NEGATIVE); URINE UROBILINOGEN 0.2 mg/dL (0.2 - 1)
[2022-07-17 23:37] LABS: INR 0.83; PROTHROMBIN TIME 12.2 seconds (11.9-14.5)
[2022-07-17 23:38] LABS: PARTIAL THROMBOPLASTIN TIME 31.3 seconds (23.8-35.5)
[2022-07-17 23:45] LABS: BACTERIA,URINE MODERATE /HPF; EPITHELIAL CELLS,URINE FEW /LPF; RBC,URINE >50 /HPF (0-5)
[2022-07-17 23:46] LABS: RENAL EPITHELIAL CELLS,URINE FEW
[2022-07-17 23:47] LABS: ALBUMIN 4.1 g/dL (3.5-5.0); ALBUMIN/GLOBULIN RATIO 0.9 (0.8-2.0); ANION GAP 18.7 mmol/L (8-16); CALCIUM 9.2 mg/dL (8.4-10.2); CREATININE, SERUM 0.71 mg/dL (0.57-1.11); POTASSIUM 3.7 mmol/L (3.5-5.1)
[2022-07-17] MEDS ORDERED: KETOROLAC TROMETHAMINE 30 MG/ML VIAL IV STA (23:57)
[2022-07-17] MEDS ORDERED: ONDANSETRON HCL INJ 2MG/ML 2ML 2 MG/ML VIAL IV STA (23:57)
[2022-07-18] MEDS: SODIUM CHLORIDE 0.9% 1000ML 1,000 ML IV SCH (00:02)
[2022-07-18] MEDS ORDERED: IOPAMIDOL 370 MG/ML 100 ML INFUS..BTL INJ ONE (00:18)
[2022-07-18] MEDS ORDERED: NAPROSYN500 MG PO (01:25)
[2022-07-18] MEDS ORDERED: CEFDINIR300 MG PO (01:25)
[2022-07-18 01:38] VITALS: BP 127/96
== END 2022-07-18 01:36 | disposition home or self-care (01) ==
LOC: ER 23:03
DX: N93.8 Other specified abnormal uterine and vaginal bleeding (principal); N39.0 Urinary tract infection, site not specified; R10.30 Lower abdominal pain, unspecified
CPT/HCPCS: 36415; 74177; 80053; 81001; 84702; 85025; 85610; 85730; 99284; J0696; J1885; J2405; J7030; Q9967

== ENCOUNTER 2023-02-16 22:05 | Emergency (ER) | payer MEDICAID ==
[~2023-02-16] VITALS: Ht 154.9 cm; Wt 93.0 kg
[~2023-02-16 22:05] MED LIST changes: +CEFDINIR300 MG PO; +NAPROSYN500 MG PO
[2023-02-16] MEDS ORDERED: ONDANSETRON HCL INJ 2MG/ML 2ML 2 MG/ML VIAL IV STA (23:39)
[2023-02-17 00:19] LABS: CLARITY,URINE CLEAR (CLEAR); COLOR,URINE YELLOW (YELLOW); KETONES,URINE NEGATIVE (NEGATIVE); LEUKOCYTE ESTERASE ,URINE NEGATIVE (NEGATIVE); NITRITE,URINE NEGATIVE (NEGATIVE); PROTEIN,URINE DIPSTICK 2+ (NEGATIVE); URINE UROBILINOGEN 0.2 mg/dL (0.2 - 1)
[2023-02-17] MEDS ORDERED: KETOROLAC TROMETHAMINE 30 MG/ML VIAL IV STA (00:20)
[2023-02-17 00:28] LABS: ALBUMIN 3.9 g/dL (3.5-5.0); AMORPHOUS SEDIMENT,URINE MANY (FEW); ANION GAP 14.7 mmol/L (8-16); BACTERIA,URINE FEW /HPF; CALCIUM 9.2 mg/dL (8.4-10.2); CREATININE, SERUM 0.73 mg/dL (0.57-1.11); EPITHELIAL CELLS,URINE MODERATE /LPF; POTASSIUM 3.7 mmol/L (3.5-5.1); RBC,URINE 0-5 /HPF (0-5); WBC,URINE (MAN) 0-5 /HPF (0-5)
[2023-02-17] MEDS ORDERED: IOPAMIDOL 370 MG/ML 100 ML INFUS..BTL INJ ONE (00:44)
[2023-02-17] MEDS ORDERED: ONDANSETRON ODT4 MG PO (01:26)
[2023-02-17] MEDS ORDERED: DICYCLOMINE HCL20 MG PO (01:26)
[2023-02-17 01:48] VITALS: BP 108/71
== END 2023-02-17 01:49 | disposition home or self-care (01) ==
LOC: ER 22:27
DX: R10.32 Left lower quadrant pain (principal); A08.4 Viral intestinal infection, unspecified; R50.9 Fever, unspecified; R51.9 Headache, unspecified
CPT/HCPCS: 36415; 74177; 80053; 81001; 84702; 85025; 99284; J1885; J2405; Q9967